=== PATIENT | female | born 1940 | race Caucasian/White ===

== ENCOUNTER 2020-09-02 16:23 | Inpatient (IN) | payer MEDICARE, MEDICAID, SELFPAY ==
[2020-09-02] VITALS (10 sets, daily range): BP systolic 107–129; BP diastolic 49–54; PULSE 70–81; RESP 16–25; TEMP 38–38.4; O2SAT 93–98; BMI 41.1; BMI 39.8
--- NOTE | 2020-09-02 16:28 | EKG12_ITS ---
Test Reason : CONFUSION Blood Pressure : / mmHG Vent. Rate : 082 BPM Atrial Rate : 082 BPM P-R Int : 170 ms QRS Dur : 086 ms QT Int : 362 ms P-R-T Axes : 016 -18 -05 degrees QTc Int : 422 ms Normal sinus rhythm Inferior infarct , age undetermined Abnormal ECG Confirmed by PAULINE DICKINSON, RUBENS ([id number]), editor department TORRIE SEQUEIRA ([id number]) on 09/08/2020 9:23:37 AM Referred By: LINO Confirmed By:MAG CARPENTER MD
--- NOTE | 2020-09-02 16:30 | ED.VIS.GEN ---
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 Context: Sudden Onset Timing: Intermittent Quality: Altered mental status Location: Private residence Current Severity: Moderate Maximum Severity: Moderate Worsened by: Unknown Relieved by: Unknown Associated Symptoms: Unknown Narrative: Patient is an elderly woman who had an altered level of consciousness/awareness this morning. Family called squad because of concern for stroke. Patient had a [place] score of 0 and was not transported. Family called again this afternoon for altered mental status. Patient is not as alert and slow to respond per paramedics. Patient is disoriented. Patient not able to contribute much with regards to her history. She denied headache. She denies change in vision. She denies chest pain. She denies shortness of breath. She denied urinary symptoms. Patient had to be redirected and questions had to be repeated. Prior similar symptoms: Yes - Earlier this morning Recent Illness/Hospitalization: No - Past Medical History (1) Benign essential hypertension Status: Chronic (2) CKD (chronic kidney disease) stage 3, GFR 30-59 ml/min Status: Chronic (3) History of hyperlipidemia Status: Chronic (4) History of rheumatic fever Status: Chronic (5) History of vitamin D deficiency Status: Chronic (6) Morbid obesity with BMI of 40.0-44.9, adult Status: Chronic (7) Status post parathyroidectomy Status: Chronic Past Medical History - Allergies and Home Meds Allergies/Adverse Reactions: Allergies Penicillins Allergy (Verified 09/02/20 16:29) Hives Prior records reviewed: Yes Surgical History: hysterectomy, tonsillectomy, - - parathyroidectomy for hypercalcemia Lives: With Family Smoking Status: Never smoker Alcohol: None Drugs: None - Family History Maternal Family History: Reports: Hypertension Sibling Family History: Reports: Hypertension - no kidney disease Review of Systems ROS: Unable to Obtain Physical Exam Vital Signs/Narrative: Vital Signs Temp Pulse Resp BP Pulse Ox 09/02/20 16:23 100.4 F H 80 18 129/49 H 94 General: Well nourished, Well developed, Obese, No Acute Distress, - - Patient is not alert. She is slow to response. Head: Normocephalic, Atraumatic Eyes: Perrl, EOMI. Negative for: Pale conjunctiva, Scleral icterus ENT: No rhinorrhea, TM's clear Neck: Supple, Nontender, No lymphadenopathy, No JVD Cardiovascular: Regular rate, Regular rhythm, No murmurs, Normal S1, Normal S2 Respiratory: No distress, CTA bilaterally, Chest nontender Abdomen: Soft, Nontender, Nondistended, Normal bowel sounds Rectal: Deferred Back: Nontender, Normal Inspection Extremities: Nontender, Edema Skin: Normal color, No rash, No Trauma. Negative for: Cyanosis, Diaphoresis, Jaundice Neurological: Cranial nerves II-XII grossly intact, Normal DTR - No clonus or Babinski sign. Patient does have stool on her toes.. Negative for: Alert, Oriented x3, Normal Strength - There may be weakness on the left side and specifically left lower extremity., Normal Gait Psychological: - - Flat affect Diagnostic/Tx/Re-eval Impressions Chest X-Ray 09/02/20 16:58 IMPRESSION: Poor inspiration with some bibasilar atelectasis. Electronically Signed: Sean Patel MD at 17:22 EST Tel , Service support , Brain CT 09/02/20 17:08 IMPRESSION: Chronic involutional changes of the brain. Electronically Signed: Sean Patel MD at 17:24 EST Tel , Service support , 09/02/20 16:58 Chest 1 View (Portable) [RAD] Stat 09/02/20 17:08 Brain/Head without Contrast [CT] Stat 09/02/20 16:30 Mucosa - Nose SARS-CoV-2 Antigen (Rapid) - Final SARS-CoV-2 (COVID 19) Laboratory Results 09/02/20 09/02/20 09/02/20 16:59 16:59 16:59 WBC 7.0 RBC 3.95 L Hgb 11.9 L Hct 37.7 MCV 95.4 MCH 30.1 MCHC 31.6 L RDW Std Deviation 48.3 H RDW Coeff of Sara 13.7 Plt Count 193 MPV 10.4 Immature Gran % (Auto) 0.400 Neut % (Auto) 79.5 H Lymph % (Auto) 8.2 L [place] % (Auto) 11.5 H Eos % (Auto) 0.1 Baso % (Auto) 0.3 Absolute Neuts (auto) 5.5 Absolute Lymphs (auto) 0.57 L Nucleated RBC % 0 PT 12.6 INR 1.0 APTT 26.6 Specimen Type Sample Site pH Bicarbonate Actual Total CO2 Base Excess O2 Saturation O2 % ABG pCO2 ABG pO2 Logan Test Sodium 137 Potassium 3.4 L Chloride 102 Carbon Dioxide 27.0 Anion Gap 8 BUN 38 H Creatinine 1.65 H Estim Creat Clear Calc 27.33 Est GFR (MDRD) Af Amer 39 L Est GFR (MDRD) Non-Af 32 L BUN/Creatinine Ratio 23.0 H Glucose 84 Calcium 8.1 L Total Bilirubin 0.50 AST 72 H ALT 40 Alkaline Phosphatase 97 Total Protein 7.5 Albumin 2.9 L Globulin 4.6 H Albumin/Globulin Ratio 0.6 L 09/02/20 17:10 WBC RBC Hgb Hct MCV MCH MCHC RDW Std Deviation RDW Coeff of Sara Plt Count MPV Immature Gran % (Auto) Neut % (Auto) Lymph % (Auto) [place] % (Auto) Eos % (Auto) Baso % (Auto) Absolute Neuts (auto) Absolute Lymphs (auto) Nucleated RBC % PT INR APTT Specimen Type ART Sample Site L Radial pH 7.45 Bicarbonate Actual 23.9 Total CO2 25 Base Excess 0 O2 Saturation 92 L O2 % 21 ABG pCO2 34.2 L ABG pO2 60 L Logan Test Positive Sodium Potassium Chloride Carbon Dioxide Anion Gap BUN Creatinine Estim Creat Clear Calc Est GFR (MDRD) Af Amer Est GFR (MDRD) Non-Af BUN/Creatinine Ratio Glucose Calcium Total Bilirubin AST ALT Alkaline Phosphatase Total Protein Albumin Globulin Albumin/Globulin Ratio Covid test is positive. This is probably the cause of her encephalopathy. Will contact hospitalist for admission. If urine indicates infection will treat with antibiotics. Review of prior records indicate patient has chronic anemia and chronic renal insufficiency. Her creatinine is significantly better than prior results. Radiologist agrees there is no acute findings on CT of the head. - EKG Initial EKG Interpretation: Sinus Rhythm - Normal sinus rhythm with a ventricular rate 82. SC interval 170 ms. QS duration 86 ms. QT duration 362 ms. [place] is normal. There is artifact in lead III which the computer is reading as inferior infarct of undetermined age. - Medical Decision Making With altered mental status and history of fall and assist 3 days ago need to rule out intracranial bleed, stroke, metabolic and infectious causes. Review of vital signs indicate patient is febrile. This may represent Covid, urinary tract infection and pneumonia. Work-up was undertaken. ABG was obtained to rule out acid-base disturbance and more importantly hypercapnia as a cause of her altered mental status. Nurse informed me that she does have a cough. Suspect respiratory etiology for the cause of her altered mental status and fever. Graph patient was seen by the hospitalist Dr. Ana Michaud. Patient now alert oriented. She does not want stay in the hospital. Patient was informed that she has coronavirus. She states she is not sure how she got it since she does not go outside of her house. She then [facility] [place]. Patient is alert she is oriented x3. She does have the capacity to make a poor decision. Patient understands by leaving AGAINST MEDICAL ADVICE this may lead to inability to perform 1 or more activities of daily living, which was explained to her. She was told this may result in fall and injury, which might result injury requiring surgery. She may require more aggressive therapy including invasive and noninvasive ventilation, tracheostomy and feeding tube. This may result in semivegetative vegetative state and or seizure disorder. She was informed that her possible injuries are not limited to what she was told and documented. She was told that this may impair her ability to think and leave her with mental disability, physical disability or cognitive disability. Patient understood. This was explained to her in front of Dr. Ana Michaud. Patient was told that patients with delirium have a 39% mortality if discharged to home and not treated properly. She acknowledged she understood this. ED Disposition - Plan for ED Patient: Disposition: Against Medical Advice Diagnosis: Infectious encephalopathy, COVID-19 virus infection, Anemia, unspecified, Chronic renal insufficiency, stage III (moderate)
--- NOTE | 2020-09-02 16:58 | RAD_ITS ---
STUDY: X-RAY CHEST REASON FOR EXAM: Female, 80 years old. ADVENTITIAL BREATH SOUNDS, LEFT SIDED WEAKNESS, LETHARGIC TECHNIQUE: Single AP portable view of the chest. COMPARISON: 08/30/2014 FINDINGS: Poor inspiration with some bibasilar atelectasis per There is no demonstrated pleural abnormality. Normal size heart. Normal mediastinum and shweta. Normal visualized pulmonary arteries. Normal visualized aortic arch and descending thoracic aorta. Normal visualized thoracic spine. Normal visualized ribs, clavicles, and shoulders. There is no demonstrated abnormality of the visualized soft tissue structures of the upper abdomen. RAD/Chest 1 View (Portable) IMPRESSION: Poor inspiration with some bibasilar atelectasis. Electronically Signed: Sean Patel MD at 17:22 EST Tel , Service support ,
--- NOTE | 2020-09-02 17:08 | CT_ITS ---
STUDY: CT BRAIN WITHOUT CONTRAST REASON FOR EXAM: Female, 80 years old. LEFT SIDED WEAKNESS AND LETHARGIC. HX OF HTN RADIATION DOSAGE (If Supplied By Facility): CTDIvol = ( 60.81 ) mGy, DLP = ( 998.67 ) mGycm TECHNIQUE: Transaxial CT imaging of the brain was performed without administration of intravenous contrast material. Individualized dose optimization techniques were used for this CT. COMPARISON: 01/04/2013 FINDINGS: Normal soft tissue structures. Normal calvarium. There is mild cerebral atrophy with widening of the extra-axial spaces and ventricular dilatation. There are areas of decreased attenuation within the white matter tracts of the supratentorial brain, consistent with microvascular disease changes. 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 Normal brainstem. Normal cerebellum. There is no intracranial hemorrhage. There are no findings of an acute ischemic infarction. Normal visualized paranasal sinuses. CT/Brain/Head without Contrast IMPRESSION: Chronic involutional changes of the brain. Electronically Signed: Sean Patel MD at 17:24 EST Tel , Service support ,
[2020-09-02 17:13] LABS: Absolute Lymphocyte Count 0.57 X10^3/uL (0.83-4.51); Absolute Neutrophil Count 5.5 X10^3/uL (2.0-7.7); Basophil# 0.02 X10^3/uL; Basophil% 0.3 % (0-1); Eosinophil# 0.01 X10^3/uL; Eosinophils% 0.1 % (0-5); Hematocrit 37.7 % (37-47); Hemoglobin 11.9 g/dL (12.0-15.0); Lymphocyte # 0.57 X10^3/ul (4.0); Lymphocyte % 8.2 % (19-41); Mean Corp Hgb Conc 31.6 g/dL (32-36); Mean Corpuscular Hgb 30.1 pg (27.0-32.0); Mean Corpuscular Volume 95.4 fL (81-99); Mean Platelet Vol. 10.4 fl (6.2-12.0); Monocyte% 11.5 % (0-10); NRBC Flagged by Analyzer 0 % (0-5); Neutrophil # 5.54 X10^3/uL (2.7-7.7); Neutrophil % 79.5 % (47-70); POSITIVE DIFFERENTIAL YES; Platelet Count 193 K/mm3 (150-450); RBC Distribution Width CV 13.7 % (11.6-14.6); RBC Distribution Width SD 48.3 fl (35.1-43.9); Red Blood Count 3.95 M/mm3 (4.2-5.4)
[2020-09-02 17:15] LABS: Differential Indicated SCAN CRITERIA MET
[2020-09-02 17:15] LABS: Allen Test Positive; Base Excess 0 mmol/L (-2 to +2); Bicarbonate 23.9 mmol/L (22-26); Blood Gas Specimen Type ART; FI02 21; PO2 60 mmHG (75-100); SITE L Radial; SO2 92 % (95-99); Total Carbon Dioxide 25 mmol/L; pCO2 34.2 mmHg (35-45); pH 7.45 (7.35-7.45)
[2020-09-02 17:22] LABS: Prothrombin Time (Protime)PT. 12.6 SECONDS (11.7-14.9)
[2020-09-02 17:23] LABS: Partial Thromboplast Time 26.6 Seconds (24.1-36.2)
[2020-09-02 17:33] LABS: ALB/GLOB Ratio 0.6 RATIO (0.9-2.4); AST(SGOT) 72 U/L (15-37); Alanine Aminotransfer ALT/SGPT 40 U/L (13-56); Albumin, Serum 2.9 g/dL (3.2-5.0); Alkaline Phosphatase 97 U/L (45-117); Anion Gap 8 (5-15); BUN 38 mg/dL (7-18); Calcium,Total 8.1 mg/dL (8.5-10.1); Chloride 102 mmol/L (98-107); Creatinine, Serum 1.65 mg/dL (0.55-1.02); EST Glomerular Filtration Rate 32 mL/min (>60); Est Glom Filt Rate - Afr Amer 39 mL/min (>60); Estimated Creatinine Clearance 27.33 ml/min; Globulin 4.6 g/dL (2.2-4.2); Glucose 84 mg/dL (74-106); Potassium 3.4 mmol/L (3.5-5.1); Protein, Total 7.5 g/dL (6.4-8.2); Sodium Level 137 mmol/L (136-145)
[2020-09-02 17:38] LABS: Mucous, Urine 0 SEEN /hpf (<or=2+); Squamous Epithelial Cells - UA 0 SEEN /hpf (5-10)
[2020-09-02 17:46] LABS: Color, Urine Yellow (Yellow); Glucose, Dipstick Normal (Normal); Ketone-Dipstick 5 mg/dl (Negative); Leukocyte Esterase-Dipstick 25 /ul (Negative); Nitrite-Dipstick Negative (Negative); Occult Blood-Urine 150 /ul (Negative); Protein-Dipstick 100 mg/dl (Negative); Urine Bilirubin Dipstick Negative (Negative); Urine Clarity Sl. Cloudy (Clear); Urine Urobilinogen 1 mg/dl (Normal)
[2020-09-02 17:55] LABS: Lactic Acid 1.3 mmol/L (0.4-1.9)
--- NOTE | 2020-09-02 17:59 | NURSING ---
MS2 DR FERRO
[2020-09-02 18:01] LABS: Bacteria RARE /hpf (None Seen)
[2020-09-02 18:02] LABS: Red Blood Cells-Urine 0-5 SEEN /hpf (0-5); White Blood Cells 0-5 SEEN /hpf (0-5)
[2020-09-02 18:10] LABS: Differential Comment SCANNED
[2020-09-02 18:11] LABS: Platelet Estimate ADEQUATE (ADEQ); Red Cell Morphology NORM C+C NORMAL (NORM C&C)
--- NOTE | 2020-09-02 20:05 | PCM.HP.STD ---
Problem List (1) Infectious encephalopathy Status: Acute (2) COVID-19 virus infection Status: Acute (3) Anemia, unspecified Status: Chronic (4) CKD (chronic kidney disease) stage 3, GFR 30-59 ml/min Status: Chronic (5) Status post parathyroidectomy Status: Chronic (6) History of vitamin D deficiency Status: Chronic (7) History of rheumatic fever Status: Chronic (8) History of hyperlipidemia Status: Chronic (9) Morbid obesity with BMI of 40.0-44.9, adult Status: Chronic (10) Benign essential hypertension Status: Chronic (11) Hypokalemia Status: Acute History of Present Illness Date of Admission: 09/02/20 Ms Cunningham is a 80 year old F with a PMH of HTN, HPL, MO, and neuropathy who presented to the ED for altered LOC. This am was the first that they noticed this and the squad was called 2/2 concern for stroke but she was not transported as her [place] score was 0. The family called again this afternoon for the same concerns and per the squad she was not as alert and slower to respond so they brought her in to the ED. She was found to be febrile and she had a + COVID-19 test. She has no complaints and upon my evaluation she wanted to s/o AMA. She was A&O x4 at that time and she signed the paperwork but her niece, when she came to pick her up, read that AMA form and talked her into staying. She was stable on RA with a SpO2 of 96%. Her labs show mild anemia which appears to be chronic and ? NICOLE on CKD stage 3 but her baseline sCr is unknown. She was started on Decadron and Remdesivir and admitted to the COVID unit. Past Medical History Past Medical History (Chronic Problems): Chronic Problems Anemia, unspecified (Chronic) CKD (chronic kidney disease) stage 3, GFR 30-59 ml/min (Chronic) Status post parathyroidectomy (Chronic) History of vitamin D deficiency (Chronic) History of rheumatic fever (Chronic) History of hyperlipidemia (Chronic) Morbid obesity with BMI of 40.0-44.9, adult (Chronic) Benign essential hypertension (Chronic) Allergies Penicillins Allergy (Verified 09/02/20 16:29) Hives Home Medications: Ambulatory Orders Medication Instructions Recorded Amlodipine [Norvasc] 5 mg PO BID 08/30/14 Lisinopril [Zestril] 40 mg PO DAILY 08/30/14 Atenolol 100 mg PO DAILY 09/02/20 Cholecalciferol (Vitamin D3) 5,000 unit PO [id number] 09/02/20 [Vitamin D3] Furosemide [Lasix] 20 mg PO DAILY PRN PRN 09/02/20 Gabapentin [Neurontin] 600 mg PO BID 09/02/20 Vitamin B Complex 1 ea PO DAILY 09/02/20 Surgical History: hysterectomy, tonsillectomy, - - parathyroidectomy for hypercalcemia Lives: With Family Smoking Status: Never smoker Alcohol: None Drugs: None - *Family History Maternal History Items: Hypertension Sibling History Items: Hypertension - no kidney disease Review of Systems Constitutional: Denies: Anorexia, Chills, Fever, Night Sweats, Malaise, Weakness, Weight Change, Fatigue Eyes: Denies: Blurred vision, Drainage, Eyelid Inflammation, Pain, Redness, Vision Change HEENT: Denies: Difficulty Hearing, Ear Pain, Eye Pain, Head Aches, Nasal bleeding, Nasal Congestion, Sinus Drainage, Sore Throat, Visual Changes Cardiovascular: Denies: Chest Pain, Claudication, Chest Pressure, Chest Tightness, Edema, Heaviness, Orthopnea, Palpitations, Paroxysmal Noc. Dyspnea, Syncope Respiratory: Denies: Cough, Hemoptysis, Pleuritic Pain, Shortness of Breath, Shortness of breath at rest, Shortness of breath upon exertion, Sputum production, Wheezing Gastrointestinal: Denies: Abdominal Pain, Constipation, Diarrhea, Dyspepsia, Hematemesis, Hematochezia, Nausea, Melena, Vomiting Genitourinary: Denies: Dysuria, Frequency, Hematuria, Hesitancy, Incontinence, Nocturia, Retention, Urgency Musculoskeletal: Reports: Arm Pain. Denies: Back Pain, Joint Pain, Joint stiffness, Joint swelling, Joint Tenderness, Muscle pain, Neck Pain Skin: Denies: Dryness, Jaundice, Lesions, Pruritis, Rash, Wounds Neurological: Denies: Balance problems, Blurred vision, Double vision, Change in Speech, Confusion, Difficulty swallowing, Focal weakness, Headaches, Incoordination, Numbness, Tingling, Tremor, Seizures Psychiatric: Denies: Anxiety, Depression Endocrine: Denies: Change in Body Habitus, Heat/ Cold Intolerance, Polydipsia, Polyuria Hematologic/ Lymphatic: Denies: Adenopathy, Anemia, Petechiae, Purpura VTE Information - Inpt Only VTE Present on Admission: No VTE Mechan Device Prophylaxis: None VTE Pharm Prophylaxis ordered?: Yes Patient Problems: Active and Suspected Problems Infectious encephalopathy (Acute) COVID-19 virus infection (Acute) - Physical Exam Vitals/I&O's: Vital Signs Temp Pulse Resp BP Pulse Ox 101.1 F H 79 25 H 113/54 L 96 09/02/20 18:00 09/02/20 18:00 09/02/20 18:00 09/02/20 18:00 09/02/20 18:00 Oxygen Delivery Method Room Air Weight: 119 kg Body Mass Index (BMI) 41.1 Finger Stick Blood Glucose 111 General: Alert, Oriented x3, Cooperative, No apparent distress, Well developed, Well nourished, - - MO older WF lying in bed appears comfortable, non-toxic HEENT: Atraumatic, PERRLA, EOMI, Normocephalic, EAC Clear Oral: Moist Mucosa, No Gingival or Mucosal Lesions/ Ulcerations Neck: Supple, No JVD, Negative Carotid Bruits, Negative Hepatojugular Reflux, No Nodes, No Nuchal Rigidity, Trachea Midline, Thyroid Normal Size and Texture, - - short thick neck Lungs: Clear to auscultation, Normal air movement, No rhonchi, No wheeze, No rales Cardiovascular: Regular rate, Regular Rhythm, Normal S1, Normal S2, No murmurs, No Ectopic Activity, No rub noted, No Gallop Abdomen: Bowel Sounds Present, Soft, Non Tender, Non-Distended, No Hepato-splenomegaly, Obese Extremities: No clubbing, No cyanosis, No edema, Capillary Refill Less than 3 Seconds, Peripheral Pulses Normal Skin: No rashes, No breakdown Musculoskeletal: No Tenderness to Palpation of Joints or Extremities, No Muscle Wasting, Arthritic Changes Lymphatic: No Cervical, Supraclavicular, or Inguinal Adenopathy Neurological: Cranial nerves II-XII grossly intact, Neuro grossly intact, Muscle tone normal, Coordination normal Psych/Mental Status: Normal Affect, Appropriate Microbiology Past 72 Hours 09/02/20 16:30 Mucosa - Nose SARS-CoV-2 Antigen (Rapid) - Final SARS-CoV-2 (COVID 19) Laboratory Results 09/02/20 16:59: WBC 7.0, RBC 3.95 L, Hgb 11.9 L, Hct 37.7, MCV 95.4, MCH 30.1, MCHC 31.6 L, RDW Std Deviation 48.3 H, RDW Coeff of Sara 13.7, Plt Count 193, MPV 10.4, Immature Gran % (Auto) 0.400, Neut % (Auto) 79.5 H, Lymph % (Auto) 8.2 L, [place] % (Auto) 11.5 H, Eos % (Auto) 0.1, Baso % (Auto) 0.3, Absolute Neuts (auto) 5.5, Absolute Lymphs (auto) 0.57 L, Nucleated RBC % 0, Differential Comment SCANNED, Platelet Estimate ADEQUATE, RBC Morphology NORM C+C 09/02/20 16:59: PT 12.6, INR 1.0, APTT 26.6 09/02/20 16:59: Sodium 137, Potassium 3.4 L, Chloride 102, Carbon Dioxide 27.0, Anion Gap 8, BUN 38 H, Creatinine 1.65 H, Estim Creat Clear Calc 27.33, Est GFR (MDRD) Af Amer 39 L, Est GFR (MDRD) Non-Af 32 L, BUN/Creatinine Ratio 23.0 H, Glucose 84, Calcium 8.1 L, Total Bilirubin 0.50, AST 72 H, ALT 40, Alkaline Phosphatase 97, Total Protein 7.5, Albumin 2.9 L, Globulin 4.6 H, Albumin/Globulin Ratio 0.6 L 09/02/20 16:59: Lactic Acid 1.3 09/02/20 17:10: Specimen Type ART, Sample Site L Radial, pH 7.45, Bicarbonate Actual 23.9, Total CO2 25, Base Excess 0, O2 Saturation 92 L, O2 % 21, ABG pCO2 34.2 L, ABG pO2 60 L, Logan Test Positive 09/02/20 17:30: Urine Color Yellow, Urine Clarity Sl. Cloudy, Urine pH 5.0, Ur Specific [place] 1.020, Urine Protein 100 H, Urine Glucose (UA) Normal, Urine Ketones 5 H, Urine Occult Blood 150 H, Urine Nitrite Negative, Urine Bilirubin Negative, Urine Urobilinogen 1 H, Ur Leukocyte Esterase 25 H, Urine RBC 0-5 SEEN, Urine WBC 0-5 SEEN, Ur Squamous Epith Cells 0 SEEN, Urine Bacteria RARE, Urine Mucus 0 SEEN Current Medications Acetaminophen (Acetaminophen 325 Mg Tablet) 650 mg PO Q6H PRN PRN PRN Reason: Pain Score 1-10/Temp > 100.7 F Albuterol Sulfate (Albuterol 2.5 Mg/3 Ml Vial.Neb.) 2.5 mg INHALATION Q2H PRN PRN PRN Reason: Shortness of Breath/Wheezing Amlodipine Besylate (Amlodipine 5 Mg Tablet) 5 mg PO BID [facility] Dexamethasone (Dexamethasone 4 Mg Tablet) 6 mg PO DAILY [facility] Docusate Sodium (Docusate Sodium 100 Mg Capsule) 100 mg PO BID PRN PRN PRN Reason: Constipation Enoxaparin Sodium (Enoxaparin 40 Mg/0.4 Ml Syringe) 40 mg SC BID [facility] Gabapentin (Gabapentin 100 Mg Capsule) 100 mg PO TIDCM [facility] Hydralazine HCl (Hydralazine 20 Mg/Ml Vial) 10 mg IV Q6H PRN PRN PRN Reason: sbp> 160 Lactated Ringer's () 1,000 mls @ 100 mls/hr IV .Q10H [facility] Remdesivir 100 mg/ Sodium (Chloride) 250 mls @ 125 mls/hr IV DAILY [facility] Stop: 09/06/20 11:59 Metoprolol Succinate (Metoprolol(Xl)Succ 100 Mg Tablet) 100 mg PO DAILY [facility] Ondansetron HCl (Ondansetron 4 Mg/2 Ml Vial) 4 mg IV Q8H PRN PRN PRN Reason: NAUSEA/VOMITING Potassium Chloride (Potassium Chloride 20 Meq Tablet) 40 meq PO X1 ONE Stop: 09/02/20 19:58 Assessment/Plan All Active Problems Infectious encephalopathy (Acute) COVID-19 virus infection (Acute) Hypokalemia (Acute) Acute COVID 19 Infection -apap for fever -remdesivir and decadron -if respiratory status remains stable could consider d/c remdesivir -supplemental O2 as needed -ABG showed PO2 of 60--> monitor for O2 needs, no CO2 retention -pt is high risk for decompensation -fibrinogen and D-dimer pending Acute Metabolic Encephalopathy 2/2 above/Fever -waxes and wanes with fevers -monitor Hypokalemia -replace and recheck -get am mag Mild Transaminitis -trend with CMP -suspect related to COVID ? NICOLE on CKD Stage 3 -baseline unclear but 2013 sCr is about the same -monitor -no Remdesivir dose adjustment needed with current CrCl but if worsens may need adjusted -hold ACEI for now -will give IVF for now and paz in m Mild Chronic Anemia -etiology uncertain -counts stable -consider further w/u as outpt HTN Continue Atenolol, Amlodipine -hold lisinopril -prn hydalizine -hold lasix for now Neuropathy -continue gabapentin MO -complicates COVID -recommend wgt loss DVT Prophylaxis -40 mg BID Lovenox -if sCr worsens would switch to heparin Code Status Full Inpatient E&M: 84932 Init Hosp L3
[2020-09-02] MEDS: Lactated Ringers 1,000 ML 100 ML IV (21:01)
[2020-09-02] MEDS: Acetaminophen 325 MG Tablet 650 MG PO (21:01)
[2020-09-02] MEDS: Remdesivir 200 MG IV x1 (Inital Dose)-All Patients 125 MG IV (21:01)
[2020-09-02] MEDS: Enoxaparin 40 MG/0.4 ML Syringe SC (21:04)
[2020-09-02] MEDS: amLODIPine 5 MG Tablet PO (21:05)
[2020-09-02 21:23] LABS: Fibrinogen 626 mg/dl (203-444)
[2020-09-02 21:30] LABS: D-Dimer Quantitative (DVT/PE) 3.07 FEU/ug/m (0.27-0.49)
--- NOTE | 2020-09-02 21:37 | VDLE_ITS ---
Reason For Study: Elevated D-dimer RIGHT LEFT GSV is normal. GSV is normal. CFV, FV and PopV are compressible. CFV, FV and PopV are compressible. Large nonvascularized strucutre noted in the Acute deep vein thrombosis is noted in the popliteal fossa measuring approximently 1.2 x left gastroc vein. 2.6 cm. Large nonvascularized strucutre noted in the T/P Trunk is compressible. popliteal fossa measuring approximently 1.2 x PTV is compressible. 4.3 cm. RT PerV is compressible. T/P Trunk is compressible. Procedure PTV is compressible. This is a venous duplex using B-mode, color LT PerV is compressible. flow and spectral Doppler. Exam performed portable in patient room. The exam was abbreviated due to the COVID 19 protocol. A preliminary report was called and/or faxed to [facility] trainer. Interpretation Summary No evidence for acute deep venous thrombosis right lower extremity Heterologous nonvascularized right popliteal fossa structure measuring 1.2 x 2.6 cm. Possible complex cyst Acute deep venous thrombosis left gastrocnemius vein Heterogenous nonvascularized left popliteal fossa structure measuring 1.2 x 4.3 cm. Possible complex cysts. Patent and compressible bilateral great saphenous veins COVID-19 protocol utilized Ordering Physician: Martha Kemp Referring Physician: Thuy Campbell M.D. Performed By: Елена Salguero RVT
--- NOTE | 2020-09-02 21:40 | PCM.HOSP.N ---
Hospitalist Note Elevated d-dimer, given renal function and baseline renal disease will request BL LE duplex US and transition to renally dosed therapeutic lovenox regimen.
[2020-09-02] MEDS: Enoxaparin 80 MG/0.8 ML Syringe SC (22:16)
[2020-09-03] VITALS (14 sets, daily range): BP systolic 108–144; BP diastolic 50–69; PULSE 59–74; RESP 16–18; TEMP 36.5–37.4; O2SAT 90–98
[2020-09-03 05:21] LABS: Absolute Neutrophil Count 2.4 X10^3/uL (2.0-7.7); Basophil# 0.02 X10^3/uL; Basophil% 0.5 % (0-1); Hematocrit 35.9 % (37-47); Hemoglobin 11.4 g/dL (12.0-15.0); Lymphocyte % 24.6 % (19-41); Mean Corp Hgb Conc 31.8 g/dL (32-36); Mean Corpuscular Hgb 30.1 pg (27.0-32.0); Mean Corpuscular Volume 94.7 fL (81-99); Mean Platelet Vol. 10.4 fl (6.2-12.0); Monocyte% 14.7 % (0-10); NRBC Flagged by Analyzer 0 % (0-5); Neutrophil # 2.44 X10^3/uL (2.7-7.7); Platelet Count 165 K/mm3 (150-450); RBC Distribution Width CV 13.8 % (11.6-14.6); RBC Distribution Width SD 48.7 fl (35.1-43.9); Red Blood Count 3.79 M/mm3 (4.2-5.4); White Blood Count 4.1 K/mm3 (4.4-11.0)
[2020-09-03 05:34] LABS: D-Dimer Quantitative (DVT/PE) 2.98 FEU/ug/m (0.27-0.49)
[2020-09-03 05:38] LABS: ALB/GLOB Ratio 0.7 RATIO (0.9-2.4); AST(SGOT) 71 U/L (15-37); Alanine Aminotransfer ALT/SGPT 37 U/L (13-56); Albumin, Serum 2.6 g/dL (3.2-5.0); Alkaline Phosphatase 83 U/L (45-117); Anion Gap 7 (5-15); BUN 37 mg/dL (7-18); BUN/Creat Ratio 25.2 RATIO (10-20); Calcium,Total 7.5 mg/dL (8.5-10.1); Chloride 104 mmol/L (98-107); Creatinine, Serum 1.47 mg/dL (0.55-1.02); EST Glomerular Filtration Rate 37 mL/min (>60); Est Glom Filt Rate - Afr Amer 44 mL/min (>60); Estimated Creatinine Clearance 30.67 ml/min; Globulin 3.6 g/dL (2.2-4.2); Glucose 85 mg/dL (74-106); Magnesium 1.5 mg/dL (1.6-2.6); Phosphorus 2.9 mg/dL (2.5-4.9); Potassium 3.6 mmol/L (3.5-5.1); Protein, Total 6.2 g/dL (6.4-8.2); Sodium Level 138 mmol/L (136-145)
[2020-09-03] MEDS: Gabapentin 100 MG Capsule PO ×3 (08:17→16:23)
[2020-09-03] MEDS: Menthol/Lanolin/Calamine/Znox 113 GM Tube 1 APPLIC TOPICAL ×2 (08:18→21:09)
[2020-09-03] MEDS: dexAMETHasone 4 MG Tablet 6 MG PO (08:46)
[2020-09-03] MEDS: amLODIPine 5 MG Tablet PO ×2 (08:51→21:10)
[2020-09-03] MEDS: Metoprolol(XL)Succ 100 MG Tablet PO (08:51)
[2020-09-03] MEDS: Enoxaparin 120 MG/0.8 ML Syringe SC (08:52)
--- NOTE | 2020-09-03 09:25 | CASEMGMT ---
RN CM Assessment Note Introduced role of CM to patient via phone to room. Demographics, PCP verified. patient states she is living alone and independently in a mobile home with ramp to entry way. She states she uses a walker for ambulation. Pt states no current assistance at home was needed. Diagnosis: COVID 19 PCP: Dr. Campbell Insurance: [facility] PPO Preferred Pharmacy: [facility] Retail Prescription Benefit: yes LNOK: Friend Living Arrangements: Lives in mobile home with ramp. States she is independent with care prior to admission. She has a shower transfer bench and is able to complete own ADL's. Tranportation: drives DME: walker, tub transfer bench HHC: none SNF: none Patient DC Goals: Home on discharge DC Plan: anticipate home on discharge. Currently on 2L [place]. May need oxygen testing prior to dc. PT/OT evaluations pending. CM available for discharge planning coordination. Contact CM for any concerns/needs that may arise. Otf COMER RN ACM
[2020-09-03] MEDS: Lactated Ringers 1,000 ML 100 ML IV (11:04)
--- NOTE | 2020-09-03 11:50 | PN_ITS ---
Patient Problems: Active and Suspected Problems Infectious encephalopathy (Acute) COVID-19 virus infection (Acute) Hypokalemia (Acute) Reason for Visit: Follow-up for COVID-19 infection with diarrhea Objective: Seen and examined. Currently patient denies any shortness of breath, cough. Patient was brought to ER for altered mental status, decreased responsiveness/slow to respond per family. Currently on 2 L of oxygen. Temperature T-max 101.1 Fahrenheit. Physical exam General: Alert, Oriented x3, Cooperative, morbid obesity BMI 39.8 kg/m?. HEENT: Atraumatic, PERRLA, EOMI, Normocephalic Oral: No Gingival or Mucosal Lesions/ Ulcerations Neck: Supple, No JVD, Negative Carotid Bruits Lungs: Air entry diminished in bilateral lung bases. No crepitation/rhonchi Cardiovascular: Regular rate, Regular Rhythm, Normal S1, Normal S2, No murmurs Abdomen: Bowel Sounds Present, Soft, Non Tender, Non-Distended : No renal angle tenderness. No suprapubic tenderness. Extremities: No edema, Capillary Refill Less than 3 Seconds Skin: Intertrigo in bilateral groin and abdominal fold of his skin. No obvious ulcer. Musculoskeletal: No Tenderness to Palpation of Joints or Extremities Neurological: Cranial nerves II-XII grossly intact, Deep Tendon Reflexes 2+/4 and Symmetrical, Neuro grossly intact Psych/Mental Status: Normal Affect, Appropriate. Vitals/I&O's: Vital Signs Temp Pulse Resp BP Pulse Ox 99.3 F H 69 18 144/59 H 95 09/03/20 08:45 09/03/20 08:51 09/03/20 08:45 09/03/20 08:45 09/03/20 08:45 Oxygen Flow Rate (L/min) 2 Oxygen Delivery Method Nasal Cannula Weight: 254 lb 1.606 oz Body Mass Index (BMI) 39.8 Finger Stick Blood Glucose 111 Intake and Output for Last 24 Hours 09/01/20 09/02/20 09/03/20 23:59 23:59 23:59 Intake Total 250 / 450 1400 / 1400 Balance 250 / 450 1400 / 1400 Microbiology Past 72 Hours 09/02/20 16:30 Mucosa - Nose SARS-CoV-2 Antigen (Rapid) - Final SARS-CoV-2 (COVID 19) Laboratory Results 09/02/20 16:59: WBC 7.0, RBC 3.95 L, Hgb 11.9 L, Hct 37.7, MCV 95.4, MCH 30.1, MCHC 31.6 L, RDW Std Deviation 48.3 H, RDW Coeff of Sara 13.7, Plt Count 193, MPV 10.4, Immature Gran % (Auto) 0.400, Neut % (Auto) 79.5 H, Lymph % (Auto) 8.2 L, [place] % (Auto) 11.5 H, Eos % (Auto) 0.1, Baso % (Auto) 0.3, Absolute Neuts (auto) 5.5, Absolute Lymphs (auto) 0.57 L, Nucleated RBC % 0, Differential Comment SCANNED, Platelet Estimate ADEQUATE, RBC Morphology NORM C+C 09/02/20 16:59: PT 12.6, INR 1.0, APTT 26.6 09/02/20 16:59: Sodium 137, Potassium 3.4 L, Chloride 102, Carbon Dioxide 27.0, Anion Gap 8, BUN 38 H, Creatinine 1.65 H, Estim Creat Clear Calc 27.33, Est GFR (MDRD) Af Amer 39 L, Est GFR (MDRD) Non-Af 32 L, BUN/Creatinine Ratio 23.0 H, Glucose 84, Calcium 8.1 L, Total Bilirubin 0.50, AST 72 H, ALT 40, Alkaline Phosphatase 97, Total Protein 7.5, Albumin 2.9 L, Globulin 4.6 H, Albumin/Globulin Ratio 0.6 L 09/02/20 16:59: Lactic Acid 1.3 09/02/20 16:59: Fibrinogen 626 H, D-Dimer Quant (PE/DVT) 3.07 H* 09/02/20 17:10: Specimen Type ART, Sample Site L Radial, pH 7.45, Bicarbonate Actual 23.9, Total CO2 25, Base Excess 0, O2 Saturation 92 L, O2 % 21, ABG pCO2 34.2 L, ABG pO2 60 L, Logan Test Positive 09/02/20 17:30: Urine Color Yellow, Urine Clarity Sl. Cloudy, Urine pH 5.0, Ur Specific [place] 1.020, Urine Protein 100 H, Urine Glucose (UA) Normal, Urine Ketones 5 H, Urine Occult Blood 150 H, Urine Nitrite Negative, Urine Bilirubin Negative, Urine Urobilinogen 1 H, Ur Leukocyte Esterase 25 H, Urine RBC 0-5 SEEN, Urine WBC 0-5 SEEN, Ur Squamous Epith Cells 0 SEEN, Urine Bacteria RARE, Urine Mucus 0 SEEN 09/03/20 04:54: WBC 4.1 L, RBC 3.79 L, Hgb 11.4 L, Hct 35.9 L, MCV 94.7, MCH 30.1, MCHC 31.8 L, RDW Std Deviation 48.7 H, RDW Coeff of Sara 13.8, Plt Count 165, MPV 10.4, Immature Gran % (Auto) 0.200, Neut % (Auto) 60.0, Lymph % (Auto) 24.6, [place] % (Auto) 14.7 H, Eos % (Auto) 0.0, Baso % (Auto) 0.5, Absolute Neuts (auto) 2.4, Absolute Lymphs (auto) 1.00, Nucleated RBC % 0 09/03/20 04:54: Sodium 138, Potassium 3.6, Chloride 104, Carbon Dioxide 27.0, Anion Gap 7, BUN 37 H, Creatinine 1.47 H, Estim Creat Clear Calc 30.67, Est GFR (MDRD) Af Amer 44 L, Est GFR (MDRD) Non-Af 37 L, BUN/Creatinine Ratio 25.2 H, Glucose 85, Calcium 7.5 L, Phosphorus 2.9, Magnesium 1.5 L, Total Bilirubin 0.60, AST 71 H, ALT 37, Alkaline Phosphatase 83, Total Protein 6.2 L, Albumin 2.6 L, Globulin 3.6, Albumin/Globulin Ratio 0.7 L 09/03/20 04:54: D-Dimer Quant (PE/DVT) 2.98 H* Current Medications Acetaminophen (Acetaminophen 325 Mg Tablet) 650 mg PO Q6H PRN PRN PRN Reason: Pain Score 1-10/Temp > 100.7 F Last Admin: 09/02/20 21:01 Dose: 650 mg Documented by: Albuterol Sulfate (Albuterol Sulfate 18 Gm Inhaler (200 Puffs)) 2 puff IH Q2H PRN PRN PRN Reason: Shortness of Breath/Wheezing Amlodipine Besylate (Amlodipine 5 Mg Tablet) 5 mg PO BID PRACHI Last Admin: 09/03/20 08:51 Dose: 5 mg Documented by: Calamine/Phenol (Menthol/Lanolin/Calamine/Znox 113 Gm Tube) 1 applic TOPICAL BID [facility]; Protocol Last Admin: 09/03/20 08:18 Dose: 1 applic Documented by: Dexamethasone (Dexamethasone 4 Mg Tablet) 6 mg PO DAILY [facility] Last Admin: 09/03/20 08:46 Dose: 6 mg Documented by: Docusate Sodium (Docusate Sodium 100 Mg Capsule) 100 mg PO BID PRN PRN PRN Reason: Constipation Enoxaparin Sodium (Enoxaparin 120 Mg/0.8 Ml Syringe) 120 mg SC DAILY [facility] Last Admin: 09/03/20 08:52 Dose: 120 mg Documented by: Gabapentin (Gabapentin 100 Mg Capsule) 100 mg PO TIDCM [facility] Last Admin: 09/03/20 08:52 Dose: 100 mg Documented by: Hydralazine HCl (Hydralazine 20 Mg/Ml Vial) 10 mg IV Q6H PRN PRN PRN Reason: sbp> 160 Lactated Ringer's () 1,000 mls @ 100 mls/hr IV .Q10H [facility] Last Admin: 09/03/20 11:04 Dose: 100 mls/hr Documented by: Remdesivir 100 mg/ Sodium (Chloride) 250 mls @ 125 mls/hr IV DAILY@2200 [facility] Stop: 09/06/20 23:59 Metoprolol Succinate (Metoprolol(Xl)Succ 100 Mg Tablet) 100 mg PO DAILY [facility] Last Admin: 09/03/20 08:51 Dose: 100 mg Documented by: Nystatin (Nystatin Powder 15gm Bottle) 1 applic TOPICAL BID [facility]; Protocol Ondansetron HCl (Ondansetron 4 Mg/2 Ml Vial) 4 mg IV Q8H PRN PRN PRN Reason: NAUSEA/VOMITING Sodium Chloride (0.9% Saline Lock 10 Ml Syringe) 10 - 40 ml IV UD PRN PRN Reason: SALINE FLUSH STROKE Vital Signs/Narrative: Vital Signs Temp Pulse Resp BP Pulse Ox 09/03/20 08:51 69 09/03/20 08:45 99.3 F H 69 18 144/59 H 95 09/03/20 08:30 18 90 Medical Necessity - Tobacco Use Smoking Status: Never smoker Tobacco Use: Non-smoker Assessment/Plan All Active Problems Infectious encephalopathy (Acute) COVID-19 virus infection (Acute) Hypokalemia (Acute) This 80-year-old female with multiple comorbidities was brought to ER for decreased responsiveness/altered mental status. COVID-19 was positive. Patient also found to have acute kidney injury on CKD stage III. 1.Acute COVID 19 Infection with acute encephalopathy most probably infectious/metabolic: Patient is being admitted on MedSurg floor. On remdesivir and Decadron. Pulse ox 95% on 2 L of oxygen. ABG 7.4 5/34/60/25 on room air with Aa gradient. Lactic acid normal. Fibrinogen and D-dimer elevated. On Lovenox 120 mg, 1 mg/kg body weight daily adjusted to creatinine clearance. AST mildly elevated at 72, albumin 2.6 otherwise liver chemistry normal. 2. Hypokalemia and hypomagnesemia: Magnesium is 1.5 phosphorus 2.9. Potassium and magnesium replacement. 3. NICOLE on CKD Stage 3: Baseline serum creatinine is unclear. Repeat labs shows improvement in creatinine. Will monitor urine output, electrolytes and kidney function daily. Hold JOAQUIN inhibitor. Mild anemia of chronic disease: Hemoglobin is stable. 11.4/35.9 Hypertension: Continue atenolol and amlodipine. Lisinopril and Lasix on hold secondary to acute kidney injury as mentioned above Peripheral neuropathy: Continue gabapentin DVT prophylaxis: CODE STATUS full: Microbiology Past 72 Hours 09/02/20 16:30 Mucosa - Nose SARS-CoV-2 Antigen (Rapid) - Final SARS-CoV-2 (COVID 19) Laboratory Results 09/02/20 16:59: WBC 7.0, RBC 3.95 L, Hgb 11.9 L, Hct 37.7, MCV 95.4, MCH 30.1, MCHC 31.6 L, RDW Std Deviation 48.3 H, RDW Coeff of Sara 13.7, Plt Count 193, MPV 10.4, Immature Gran % (Auto) 0.400, Neut % (Auto) 79.5 H, Lymph % (Auto) 8.2 L, [place] % (Auto) 11.5 H, Eos % (Auto) 0.1, Baso % (Auto) 0.3, Absolute Neuts (auto) 5.5, Absolute Lymphs (auto) 0.57 L, Nucleated RBC % 0, Differential Comment SCANNED, Platelet Estimate ADEQUATE, RBC Morphology NORM C+C 09/02/20 16:59: PT 12.6, INR 1.0, APTT 26.6 09/02/20 16:59: Sodium 137, Potassium 3.4 L, Chloride 102, Carbon Dioxide 27.0, Anion Gap 8, BUN 38 H, Creatinine 1.65 H, Estim Creat Clear Calc 27.33, Est GFR (MDRD) Af Amer 39 L, Est GFR (MDRD) Non-Af 32 L, BUN/Creatinine Ratio 23.0 H, Glucose 84, Calcium 8.1 L, Total Bilirubin 0.50, AST 72 H, ALT 40, Alkaline Phosphatase 97, Total Protein 7.5, Albumin 2.9 L, Globulin 4.6 H, Albumin/Globulin Ratio 0.6 L 09/02/20 16:59: Lactic Acid 1.3 09/02/20 16:59: Fibrinogen 626 H, D-Dimer Quant (PE/DVT) 3.07 H* 09/02/20 17:10: Specimen Type ART, Sample Site L Radial, pH 7.45, Bicarbonate Actual 23.9, Total CO2 25, Base Excess 0, O2 Saturation 92 L, O2 % 21, ABG pCO2 34.2 L, ABG pO2 60 L, Logan Test Positive 09/02/20 17:30: Urine Color Yellow, Urine Clarity Sl. Cloudy, Urine pH 5.0, Ur Specific [place] 1.020, Urine Protein 100 H, Urine Glucose (UA) Normal, Urine Ketones 5 H, Urine Occult Blood 150 H, Urine Nitrite Negative, Urine Bilirubin Negative, Urine Urobilinogen 1 H, Ur Leukocyte Esterase 25 H, Urine RBC 0-5 SEEN, Urine WBC 0-5 SEEN, Ur Squamous Epith Cells 0 SEEN, Urine Bacteria RARE, Urine Mucus 0 SEEN 09/03/20 04:54: WBC 4.1 L, RBC 3.79 L, Hgb 11.4 L, Hct 35.9 L, MCV 94.7, MCH 30.1, MCHC 31.8 L, RDW Std Deviation 48.7 H, RDW Coeff of Sara 13.8, Plt Count 165, MPV 10.4, Immature Gran % (Auto) 0.200, Neut % (Auto) 60.0, Lymph % (Auto) 24.6, [place] % (Auto) 14.7 H, Eos % (Auto) 0.0, Baso % (Auto) 0.5, Absolute Neuts (auto) 2.4, Absolute Lymphs (auto) 1.00, Nucleated RBC % 0 09/03/20 04:54: Sodium 138, Potassium 3.6, Chloride 104, Carbon Dioxide 27.0, Anion Gap 7, BUN 37 H, Creatinine 1.47 H, Estim Creat Clear Calc 30.67, Est GFR (MDRD) Af Amer 44 L, Est GFR (MDRD) Non-Af 37 L, BUN/Creatinine Ratio 25.2 H, Glucose 85, Calcium 7.5 L, Phosphorus 2.9, Magnesium 1.5 L, Total Bilirubin 0.60, AST 71 H, ALT 37, Alkaline Phosphatase 83, Total Protein 6.2 L, Albumin 2.6 L, Globulin 3.6, Albumin/Globulin Ratio 0.7 L 09/03/20 04:54: D-Dimer Quant (PE/DVT) 2.98 H* Inpatient E&M: 24986 Subs Hosp L2
--- NOTE | 2020-09-03 13:28 | CHAPLAIN ---
Type of Pastoral Visit ___ Initial Visit ___ Follow-up Visit ___ On-call Visit ___ General Patient Visit ___ Spiritual Assessment ___ Family Conference ___ Bereavement ___ Rapid Response ___ Code Blue _x__ Other (describe below) Pastoral Care Referral From ___ Patient ___ Family ___ Nurse ___ Physician ___ Software Sales Consultant ___ Camp Dining Room Attendant _x__ Other (describe below) Sacrament/Intervention _x__ Active listening ___ Anointing ___ Advent ___ Bereavement ___ Communion _x__ Elana exploration ___ ___ Life review _x__ Prayer ___ Reconciliation ___ Sacrament of Sick ___ Supportive presence ___ Wedding ___ Other (describe below) Pastoral Comments phone call into this isolation room for patient; pt answered phone and states she is feeling pretty good now; pt says she is looking forward to going home and seeing her pet; pt is member of [employer]; pt welcomes prayer
--- NOTE | 2020-09-03 15:29 | PCM.HP.ID ---
Problem List (1) COVID-19 virus infection Status: Acute Reason for Consult: covid Consulted by: Dr. Pollock History of Present Illness: The patient is a 80 year old F with CKD, presented with sx starting 08/31 with fatigue, cough, diarrhea. Had driven a friend who had the flu a week prior. No fever, no chest pain, no aches. Came to ED, covid (+), admitted on dex and remdesivir. Feeling ok today. Full ROS performed and neg except as noted above. - Medical History Past Medical History (Chronic Problems): Chronic Problems Anemia, unspecified (Chronic) CKD (chronic kidney disease) stage 3, GFR 30-59 ml/min (Chronic) Status post parathyroidectomy (Chronic) History of vitamin D deficiency (Chronic) History of rheumatic fever (Chronic) History of hyperlipidemia (Chronic) Morbid obesity with BMI of 40.0-44.9, adult (Chronic) Benign essential hypertension (Chronic) Allergies/Adverse Reactions: Allergies Penicillins Allergy (Verified 09/02/20 16:29) Hives Home Medications: Ambulatory Orders Medication Instructions Recorded Amlodipine [Norvasc] 5 mg PO BID 08/30/14 Lisinopril [Zestril] 40 mg PO DAILY 08/30/14 Atenolol 100 mg PO DAILY 09/02/20 Cholecalciferol (Vitamin D3) 5,000 unit PO [id number] 09/02/20 [Vitamin D3] Furosemide [Lasix] 20 mg PO DAILY PRN PRN 09/02/20 Gabapentin [Neurontin] 600 mg PO BID 09/02/20 Vitamin B Complex 1 ea PO DAILY 09/02/20 - Social History Tobacco Use: non-smoker Vital Signs Temp Pulse Resp BP Pulse Ox 99.3 F H 68 18 144/59 H 95 09/03/20 08:45 09/03/20 09:54 09/03/20 08:45 09/03/20 08:45 09/03/20 08:45 Oxygen Flow Rate (L/min) 2 Oxygen Delivery Method Nasal Cannula Weight: 115.258 kg Body Mass Index (BMI) 39.8 Finger Stick Blood Glucose 111 Microbiology Past 72 Hours 09/02/20 17:30 Urine Culture - Preliminary Urine, Catheterized Presumptive E. coli 09/02/20 16:30 SARS-CoV-2 Antigen (Rapid) - Final Mucosa - Nose SARS-CoV-2 (COVID 19) Laboratory Tests Past 24 Hrs 09/02/20 09/02/20 09/02/20 16:59 16:59 16:59 WBC 7.0 RBC 3.95 L Hgb 11.9 L Hct 37.7 MCV 95.4 MCH 30.1 MCHC 31.6 L RDW Std Deviation 48.3 H RDW Coeff of Sara 13.7 Plt Count 193 MPV 10.4 Immature Gran % (Auto) 0.400 Neut % (Auto) 79.5 H Lymph % (Auto) 8.2 L [place] % (Auto) 11.5 H Eos % (Auto) 0.1 Baso % (Auto) 0.3 Absolute Neuts (auto) 5.5 Absolute Lymphs (auto) 0.57 L Nucleated RBC % 0 Differential Comment SCANNED Platelet Estimate ADEQUATE RBC Morphology NORM C+C PT 12.6 INR 1.0 APTT 26.6 Fibrinogen D-Dimer Quant (PE/DVT) Specimen Type Sample Site pH Bicarbonate Actual Total CO2 Base Excess O2 Saturation O2 % ABG pCO2 ABG pO2 Logan Test Sodium 137 Potassium 3.4 L Chloride 102 Carbon Dioxide 27.0 Anion Gap 8 BUN 38 H Creatinine 1.65 H Estim Creat Clear Calc 27.33 Est GFR (MDRD) Af Amer 39 L Est GFR (MDRD) Non-Af 32 L BUN/Creatinine Ratio 23.0 H Glucose 84 Lactic Acid Calcium 8.1 L Phosphorus Magnesium Total Bilirubin 0.50 AST 72 H ALT 40 Alkaline Phosphatase 97 Total Protein 7.5 Albumin 2.9 L Globulin 4.6 H Albumin/Globulin Ratio 0.6 L Urine Color Urine Clarity Urine pH Ur Specific [place] Urine Protein Urine Glucose (UA) Urine Ketones Urine Occult Blood Urine Nitrite Urine Bilirubin Urine Urobilinogen Ur Leukocyte Esterase Urine RBC Urine WBC Ur Squamous Epith Cells Urine Bacteria Urine Mucus 09/02/20 09/02/20 09/02/20 16:59 16:59 17:10 WBC RBC Hgb Hct MCV MCH MCHC RDW Std Deviation RDW Coeff of Sara Plt Count MPV Immature Gran % (Auto) Neut % (Auto) Lymph % (Auto) [place] % (Auto) Eos % (Auto) Baso % (Auto) Absolute Neuts (auto) Absolute Lymphs (auto) Nucleated RBC % Differential Comment Platelet Estimate RBC Morphology PT INR APTT Fibrinogen 626 H D-Dimer Quant (PE/DVT) 3.07 H* Specimen Type ART Sample Site L Radial pH 7.45 Bicarbonate Actual 23.9 Total CO2 25 Base Excess 0 O2 Saturation 92 L O2 % 21 ABG pCO2 34.2 L ABG pO2 60 L Logan Test Positive Sodium Potassium Chloride Carbon Dioxide Anion Gap BUN Creatinine Estim Creat Clear Calc Est GFR (MDRD) Af Amer Est GFR (MDRD) Non-Af BUN/Creatinine Ratio Glucose Lactic Acid 1.3 Calcium Phosphorus Magnesium Total Bilirubin AST ALT Alkaline Phosphatase Total Protein Albumin Globulin Albumin/Globulin Ratio Urine Color Urine Clarity Urine pH Ur Specific [place] Urine Protein Urine Glucose (UA) Urine Ketones Urine Occult Blood Urine Nitrite Urine Bilirubin Urine Urobilinogen Ur Leukocyte Esterase Urine RBC Urine WBC Ur Squamous Epith Cells Urine Bacteria Urine Mucus 09/02/20 09/03/20 09/03/20 17:30 04:54 04:54 WBC 4.1 L RBC 3.79 L Hgb 11.4 L Hct 35.9 L MCV 94.7 MCH 30.1 MCHC 31.8 L RDW Std Deviation 48.7 H RDW Coeff of Sara 13.8 Plt Count 165 MPV 10.4 Immature Gran % (Auto) 0.200 Neut % (Auto) 60.0 Lymph % (Auto) 24.6 [place] % (Auto) 14.7 H Eos % (Auto) 0.0 Baso % (Auto) 0.5 Absolute Neuts (auto) 2.4 Absolute Lymphs (auto) 1.00 Nucleated RBC % 0 Differential Comment Platelet Estimate RBC Morphology PT INR APTT Fibrinogen D-Dimer Quant (PE/DVT) Specimen Type Sample Site pH Bicarbonate Actual Total CO2 Base Excess O2 Saturation O2 % ABG pCO2 ABG pO2 Logan Test Sodium 138 Potassium 3.6 Chloride 104 Carbon Dioxide 27.0 Anion Gap 7 BUN 37 H Creatinine 1.47 H Estim Creat Clear Calc 30.67 Est GFR (MDRD) Af Amer 44 L Est GFR (MDRD) Non-Af 37 L BUN/Creatinine Ratio 25.2 H Glucose 85 Lactic Acid Calcium 7.5 L Phosphorus 2.9 Magnesium 1.5 L Total Bilirubin 0.60 AST 71 H ALT 37 Alkaline Phosphatase 83 Total Protein 6.2 L Albumin 2.6 L Globulin 3.6 Albumin/Globulin Ratio 0.7 L Urine Color Yellow Urine Clarity Sl. Cloudy Urine pH 5.0 Ur Specific [place] 1.020 Urine Protein 100 H Urine Glucose (UA) Normal Urine Ketones 5 H Urine Occult Blood 150 H Urine Nitrite Negative Urine Bilirubin Negative Urine Urobilinogen 1 H Ur Leukocyte Esterase 25 H Urine RBC 0-5 SEEN Urine WBC 0-5 SEEN Ur Squamous Epith Cells 0 SEEN Urine Bacteria RARE Urine Mucus 0 SEEN 09/03/20 04:54 WBC RBC Hgb Hct MCV MCH MCHC RDW Std Deviation RDW Coeff of Sara Plt Count MPV Immature Gran % (Auto) Neut % (Auto) Lymph % (Auto) [place] % (Auto) Eos % (Auto) Baso % (Auto) Absolute Neuts (auto) Absolute Lymphs (auto) Nucleated RBC % Differential Comment Platelet Estimate RBC Morphology PT INR APTT Fibrinogen D-Dimer Quant (PE/DVT) 2.98 H* Specimen Type Sample Site pH Bicarbonate Actual Total CO2 Base Excess O2 Saturation O2 % ABG pCO2 ABG pO2 Logan Test Sodium Potassium Chloride Carbon Dioxide Anion Gap BUN Creatinine Estim Creat Clear Calc Est GFR (MDRD) Af Amer Est GFR (MDRD) Non-Af BUN/Creatinine Ratio Glucose Lactic Acid Calcium Phosphorus Magnesium Total Bilirubin AST ALT Alkaline Phosphatase Total Protein Albumin Globulin Albumin/Globulin Ratio Urine Color Urine Clarity Urine pH Ur Specific [place] Urine Protein Urine Glucose (UA) Urine Ketones Urine Occult Blood Urine Nitrite Urine Bilirubin Urine Urobilinogen Ur Leukocyte Esterase Urine RBC Urine WBC Ur Squamous Epith Cells Urine Bacteria Urine Mucus - Other Studies Radiology: [] reviewed Other Studies: [] Route of nutrition/ use of supplements: [] Nutritional Intake: [] IV Site: [] [place] Catheter: [] - Physical Exam General: Alert, Oriented x3, Cooperative, No apparent distress HEENT: Atraumatic, PERRLA, EOMI Neck: Supple, No Nodes Lungs: Clear to auscultation, Diminished Cardiovascular: Regular rate, Regular Rhythm Abdomen: Soft, Non Tender, Non-Distended Extremities: No edema Skin: No rashes IV Site: Peripheral, without redness Musculoskeletal: No Tenderness to Palpation of Joints or Extremities Neurological: Cranial nerves II-XII grossly intact - Assessment/Plan Antibiotics: [] Assessment/Plan: [] Active and Suspected Problems Infectious encephalopathy (Acute) COVID-19 virus infection (Acute) Hypokalemia (Acute) covid with hypoxia, fever - sx started 08/31. On dex and remdesivir. D-dimer 3, on therapeutic lovenox. Doppler pending. Will order VQ scan; if neg, can decrease lovenox. ucx with small growth of ecoli, agree with not treating with abx. Will follow, thank you
[2020-09-03] MEDS: Nystatin Powder 15gm Bottle 1 APPLIC TOPICAL (21:08)
[2020-09-04] VITALS (7 sets, daily range): BP systolic 125–155; BP diastolic 59–84; PULSE 55–68; RESP 16–18; TEMP 36.6–37; O2SAT 93–96
[2020-09-04] MEDS: Lactated Ringers 1,000 ML 100 ML IV (00:04)
--- NOTE | 2020-09-04 07:01 | PCS.PANDOC ---
PANDEMIC DOCUMENTATION INITIATED: Date: 09/02/20 Time: 1954
--- NOTE | 2020-09-04 07:40 | PN_ITS ---
Patient Problems: Active and Suspected Problems Infectious encephalopathy (Acute) COVID-19 virus infection (Acute) Hypokalemia (Acute) Objective: Heart rate in upper 50s. Blood pressure is in normal range. On 2 L of oxygen. Wound culture shows E. coli 11,000 25,000, not in pathologic range, colonization. Would not treat it. Vitals/I&O's: Vital Signs Temp Pulse Resp BP Pulse Ox 98.6 F 59 L 16 125/59 H 96 09/04/20 03:00 09/04/20 07:09 09/04/20 03:00 09/04/20 03:00 09/04/20 03:00 Oxygen Flow Rate (L/min) 2 Oxygen Delivery Method Nasal Cannula Weight: 254 lb 1.606 oz Body Mass Index (BMI) 39.8 Finger Stick Blood Glucose 111 Intake and Output for Last 24 Hours 09/02/20 09/03/20 09/04/20 23:59 23:59 23:59 Intake Total 250 / 450 2504.00 / 2704.00 750 / 750 Balance 250 / 450 2504.00 / 2704.00 750 / 750 Microbiology Past 72 Hours 09/02/20 17:30 Urine, Catheterized Urine Culture - Preliminary Presumptive E. coli 09/02/20 16:30 Mucosa - Nose SARS-CoV-2 Antigen (Rapid) - Final SARS-CoV-2 (COVID 19) Current Medications Acetaminophen (Acetaminophen 325 Mg Tablet) 650 mg PO Q6H PRN PRN PRN Reason: Pain Score 1-10/Temp > 100.7 F Last Admin: 09/02/20 21:01 Dose: 650 mg Documented by: Albuterol Sulfate (Albuterol Sulfate 18 Gm Inhaler (200 Puffs)) 2 puff IH Q2H PRN PRN PRN Reason: Shortness of Breath/Wheezing Amlodipine Besylate (Amlodipine 5 Mg Tablet) 5 mg PO BID [facility] Last Admin: 09/03/20 21:10 Dose: 5 mg Documented by: Calamine/Phenol (Menthol/Lanolin/Calamine/Znox 113 Gm Tube) 1 applic TOPICAL BID [facility]; Protocol Last Admin: 09/03/20 21:09 Dose: 1 applic Documented by: Dexamethasone (Dexamethasone 4 Mg Tablet) 6 mg PO DAILY [facility] Stop: 09/12/20 10:01 Last Admin: 09/03/20 08:46 Dose: 6 mg Documented by: Docusate Sodium (Docusate Sodium 100 Mg Capsule) 100 mg PO BID PRN PRN PRN Reason: Constipation Enoxaparin Sodium (Enoxaparin 120 Mg/0.8 Ml Syringe) 120 mg SC DAILY [facility] Last Admin: 09/03/20 08:52 Dose: 120 mg Documented by: Gabapentin (Gabapentin 100 Mg Capsule) 100 mg PO TIDCM [facility] Last Admin: 09/03/20 16:23 Dose: 100 mg Documented by: Hydralazine HCl (Hydralazine 20 Mg/Ml Vial) 10 mg IV Q6H PRN PRN PRN Reason: sbp> 160 Lactated Ringer's () 1,000 mls @ 100 mls/hr IV .Q10H [facility] Last Admin: 09/04/20 00:04 Dose: 100 mls/hr Documented by: Remdesivir 100 mg/ Sodium (Chloride) 250 mls @ 125 mls/hr IV DAILY@2200 [facility] Stop: 09/06/20 23:59 Last Infusion: 09/04/20 00:05 Dose: Infused Documented by: Metoprolol Succinate (Metoprolol(Xl)Succ 100 Mg Tablet) 100 mg PO DAILY [facility] Last Admin: 09/03/20 08:51 Dose: 100 mg Documented by: Nystatin (Nystatin Powder 15gm Bottle) 1 applic TOPICAL BID [facility]; Protocol Last Admin: 09/03/20 21:08 Dose: 1 applicatio Documented by: Ondansetron HCl (Ondansetron 4 Mg/2 Ml Vial) 4 mg IV Q8H PRN PRN PRN Reason: NAUSEA/VOMITING Potassium Chloride (Potassium Chloride 20 Meq Tablet) 40 meq PO DAILY [facility] Stop: 09/05/20 11:59 Last Admin: 09/03/20 13:29 Dose: 40 meq Documented by: Sodium Chloride (0.9% Saline Lock 10 Ml Syringe) 10 - 40 ml IV UD PRN PRN Reason: SALINE FLUSH STROKE Vital Signs/Narrative: Vital Signs Pulse 09/04/20 07:09 59 L 09/04/20 04:13 55 L Medical Necessity - Tobacco Use Smoking Status: Never smoker Tobacco Use: Non-smoker Assessment/Plan All Active Problems Infectious encephalopathy (Acute) COVID-19 virus infection (Acute) Hypokalemia (Acute) This 80-year-old female with multiple comorbidities was brought to ER for decreased responsiveness/altered mental status. COVID-19 was positive. Patient also found to have acute kidney injury on CKD stage III. 1.Acute COVID 19 Infection with acute encephalopathy most probably infectious/metabolic: Patient is being admitted on MedSurg floor. On remdesivir and Decadron. Pulse ox 95% on 2 L of oxygen. ABG 7.4 5/34/60/25 on room air with Aa gradient. Lactic acid normal. Fibrinogen and D-dimer elevated. On Lovenox 120 mg, 1 mg/kg body weight daily adjusted to creatinine clearance. AST mildly elevated at 72, albumin 2.6 otherwise liver chemistry normal. 2. Hypokalemia and hypomagnesemia: Magnesium is 1.5 phosphorus 2.9. Potassium and magnesium replacement. 3. NICOLE on CKD Stage 3: Baseline serum creatinine is unclear. Repeat labs shows improvement in creatinine. Will monitor urine output, electrolytes and kidney function daily. Hold JOAQUIN inhibitor. Mild anemia of chronic disease: Hemoglobin is stable. 11.4/35.9 Hypertension: Continue atenolol and amlodipine. Lisinopril and Lasix on hold secondary to acute kidney injury as mentioned above Peripheral neuropathy: Continue gabapentin DVT prophylaxis: CODE STATUS full: Microbiology Past 72 Hours 09/02/20 16:30 Mucosa - Nose SARS-CoV-2 Antigen (Rapid) - Final SARS-CoV-2 (COVID 19) Laboratory Results 09/02/20 16:59: WBC 7.0, RBC 3.95 L, Hgb 11.9 L, Hct 37.7, MCV 95.4, MCH 30.1, MCHC 31.6 L, RDW Std Deviation 48.3 H, RDW Coeff of Sara 13.7, Plt Count 193, MPV 10.4, Immature Gran % (Auto) 0.400, Neut % (Auto) 79.5 H, Lymph % (Auto) 8.2 L, [place] % (Auto) 11.5 H, Eos % (Auto) 0.1, Baso % (Auto) 0.3, Absolute Neuts (auto) 5.5, Absolute Lymphs (auto) 0.57 L, Nucleated RBC % 0, Differential Comment SCANNED, Platelet Estimate ADEQUATE, RBC Morphology NORM C+C 09/02/20 16:59: PT 12.6, INR 1.0, APTT 26.6 09/02/20 16:59: Sodium 137, Potassium 3.4 L, Chloride 102, Carbon Dioxide 27.0, Anion Gap 8, BUN 38 H, Creatinine 1.65 H, Estim Creat Clear Calc 27.33, Est GFR (MDRD) Af Amer 39 L, Est GFR (MDRD) Non-Af 32 L, BUN/Creatinine Ratio 23.0 H, Glucose 84, Calcium 8.1 L, Total Bilirubin 0.50, AST 72 H, ALT 40, Alkaline Phosphatase 97, Total Protein 7.5, Albumin 2.9 L, Globulin 4.6 H, Albumin/Globulin Ratio 0.6 L 09/02/20 16:59: Lactic Acid 1.3 09/02/20 16:59: Fibrinogen 626 H, D-Dimer Quant (PE/DVT) 3.07 H* 09/02/20 17:10: Specimen Type ART, Sample Site L Radial, pH 7.45, Bicarbonate Actual 23.9, Total CO2 25, Base Excess 0, O2 Saturation 92 L, O2 % 21, ABG pCO2 34.2 L, ABG pO2 60 L, Logan Test Positive 09/02/20 17:30: Urine Color Yellow, Urine Clarity Sl. Cloudy, Urine pH 5.0, Ur Specific [place] 1.020, Urine Protein 100 H, Urine Glucose (UA) Normal, Urine Ketones 5 H, Urine Occult Blood 150 H, Urine Nitrite Negative, Urine Bilirubin Negative, Urine Urobilinogen 1 H, Ur Leukocyte Esterase 25 H, Urine RBC 0-5 SEEN, Urine WBC 0-5 SEEN, Ur Squamous Epith Cells 0 SEEN, Urine Bacteria RARE, Urine Mucus 0 SEEN 09/03/20 04:54: WBC 4.1 L, RBC 3.79 L, Hgb 11.4 L, Hct 35.9 L, MCV 94.7, MCH 30.1, MCHC 31.8 L, RDW Std Deviation 48.7 H, RDW Coeff of Sara 13.8, Plt Count 165, MPV 10.4, Immature Gran % (Auto) 0.200, Neut % (Auto) 60.0, Lymph % (Auto) 24.6, [place] % (Auto) 14.7 H, Eos % (Auto) 0.0, Baso % (Auto) 0.5, Absolute Neuts (auto) 2.4, Absolute Lymphs (auto) 1.00, Nucleated RBC % 0 09/03/20 04:54: Sodium 138, Potassium 3.6, Chloride 104, Carbon Dioxide 27.0, Anion Gap 7, BUN 37 H, Creatinine 1.47 H, Estim Creat Clear Calc 30.67, Est GFR (MDRD) Af Amer 44 L, Est GFR (MDRD) Non-Af 37 L, BUN/Creatinine Ratio 25.2 H, Glucose 85, Calcium 7.5 L, Phosphorus 2.9, Magnesium 1.5 L, Total Bilirubin 0.60, AST 71 H, ALT 37, Alkaline Phosphatase 83, Total Protein 6.2 L, Albumin 2.6 L, Globulin 3.6, Albumin/Globulin Ratio 0.7 L 09/03/20 04:54: D-Dimer Quant (PE/DVT) 2.98 H*
[2020-09-04 08:21] LABS: ALB/GLOB Ratio 0.7 RATIO (0.9-2.4); AST(SGOT) 72 U/L (15-37); Alanine Aminotransfer ALT/SGPT 41 U/L (13-56); Albumin, Serum 2.9 g/dL (3.2-5.0); Alkaline Phosphatase 86 U/L (45-117); Anion Gap 11 (5-15); BUN 33 mg/dL (7-18); BUN/Creat Ratio 25.8 RATIO (10-20); Calcium,Total 7.6 mg/dL (8.5-10.1); Chloride 110 mmol/L (98-107); Creatinine, Serum 1.28 mg/dL (0.55-1.02); EST Glomerular Filtration Rate 43 mL/min (>60); Est Glom Filt Rate - Afr Amer 52 mL/min (>60); Estimated Creatinine Clearance 35.22 ml/min; Globulin 4.1 g/dL (2.2-4.2); Glucose 95 mg/dL (74-106); Magnesium 1.9 mg/dL (1.6-2.6); Potassium 4.4 mmol/L (3.5-5.1); Sodium Level 139 mmol/L (136-145)
[2020-09-04] MEDS: Gabapentin 100 MG Capsule PO (08:54)
[2020-09-04] MEDS: Nystatin Powder 15gm Bottle 1 APPLIC TOPICAL (08:54)
[2020-09-04] MEDS: amLODIPine 5 MG Tablet PO (08:55)
[2020-09-04] MEDS: Enoxaparin 120 MG/0.8 ML Syringe SC (08:55)
[2020-09-04] MEDS: Metoprolol(XL)Succ 100 MG Tablet PO (08:55)
[2020-09-04] MEDS: Menthol/Lanolin/Calamine/Znox 113 GM Tube 1 APPLIC TOPICAL (08:56)
[2020-09-04] MEDS: dexAMETHasone 4 MG Tablet 6 MG PO (08:56)
--- NOTE | 2020-09-04 10:23 | PCM.DC ---
- Discharge Diagnoses Current Active Problems: Current Active and Chronic Problems Infectious encephalopathy (Acute) COVID-19 virus infection (Acute) Anemia, unspecified (Chronic) Hypokalemia (Acute) CKD (chronic kidney disease) stage 3, GFR 30-59 ml/min (Chronic) Status post parathyroidectomy (Chronic) History of vitamin D deficiency (Chronic) History of rheumatic fever (Chronic) History of hyperlipidemia (Chronic) Morbid obesity with BMI of 40.0-44.9, adult (Chronic) Benign essential hypertension (Chronic) You will use the following diet at home:: Cardiac Your food should be the consistency of: Regular Your liquids should be the consistency of: Regular/Thin Discharge Activity: May Not Drive Weight Bearing Status: Weight bearing as tolerated Call your doctor if you observe: Fever of 101 or Higher, Numbness or Tingling, Change in Color, Inability to urinate, Inability to have a bowel movement, Using more than one pad per hour, Shortness of breath, Dizziness, Fainting spells, Swelling in the ankles, Chest pain, Prolonged hiccoughing, Increased palpitations (irregular heartbeat), Calf discomfort, Uncontrolled pain Additional Instructions: Advised BMP in 1 week and follow-up with PCP as patient has acute kidney injury on CKD stage III Hold lisinopril and Lasix until kidney function is on baseline, at least 1 week Allergies/Adverse Reactions: Allergies Penicillins Allergy (Verified 09/02/20 16:29) Hives Medications to take at Discharge Amlodipine [Norvasc] 5 mg PO BID 08/30/14 Cholecalciferol (Vitamin D3) [Vitamin D3] 5,000 unit PO MOTUWETHFRSA 09/02/20 Gabapentin [Neurontin] 600 mg PO BID 09/02/20 Vitamin B Complex 1 ea PO DAILY 09/02/20 Apixaban [Eliquis] 5 mg PO BID #60 tab.ds.pk 09/04/20 Atenolol 100 mg PO DAILY #0 09/04/20 Dexamethasone [Decadron] 6 mg PO DAILY #8 tab 09/04/20 Furosemide [Lasix] 20 mg PO DAILY PRN PRN #0 09/04/20 Lisinopril [Zestril] 40 mg PO DAILY #0 09/04/20 The following prescriptions were given: Dexamethasone [Decadron] 6 mg PO DAILY #8 tab Transmission Status: Pending to [facility] Apixaban [Eliquis] 5 mg PO BID #60 tab.ds.pk Transmission Status: Pending to [facility] Primary Care Physician: Thuy Campbell MD [Primary Care Provider] - Please follow up with your Primary Care Physician in: in 1-2 week Test Results: Test results from this visit will be discussed in further detail at your follow-up appointment, if applicable. Please Follow Up With: Mark Leach MD When: as needed For COVID-19
--- NOTE | 2020-09-04 10:25 | DS.PCM_ITS ---
Discharge Date and Diagnosis - Problem List Patient Problems: Active and Suspected Problems Infectious encephalopathy (Acute) COVID-19 virus infection (Acute) Hypokalemia (Acute) Date of Admission: 09/02/20 Date of Discharge: 09/04/20 - Primary Discharge Diagnosis Acute Problems: Active Problems Infectious encephalopathy (Acute) COVID-19 virus infection (Acute) Hypokalemia (Acute) - Secondary Discharge Diagnosis Chronic Problems: Chronic Problems Anemia, unspecified (Chronic) CKD (chronic kidney disease) stage 3, GFR 30-59 ml/min (Chronic) Status post parathyroidectomy (Chronic) History of vitamin D deficiency (Chronic) History of rheumatic fever (Chronic) History of hyperlipidemia (Chronic) Morbid obesity with BMI of 40.0-44.9, adult (Chronic) Benign essential hypertension (Chronic) Hospital Course and Treatment Imaging Results: 09/04/20 07:10 CXR [Chest 1 View (Portable)] [RAD] Stat Operations: None Summary of Care Provided: This 80-year-old female with multiple comorbidities was brought to ER for decreased responsiveness/altered mental status. COVID-19 was positive. Patient also found to have acute kidney injury on CKD stage III. 1.Acute COVID 19 Infection with acute encephalopathy most probably infectious/metabolic: Patient is being admitted on MedSurg floor. On remdesivir and Decadron. Pulse ox 95% on 2 L of oxygen. ABG 7.4 5/34/60/25 on room air with Aa gradient. Lactic acid normal. Fibrinogen and D-dimer elevated. On Lovenox 120 mg, 1 mg/kg body weight daily adjusted to creatinine clearance. AST mildly elevated at 72, albumin 2.6 otherwise liver chemistry normal. Repeat labs shows improvement in BUN/creatinine 33/1.28, estimated creatinine clearance 35 ml/min. Acute DVT of left gastrocnemius vein: D-dimer was elevated 3.07, 2.98. CT angiogram chest could not be done because of acute kidney injury on CKD and not major difference in treatment. While hospital stay, patient was treated with Lovenox therapeutic dosage adjusted to creatinine clearance and discharged on Eliquis 10 mg twice daily for 5 more days and then 5 mg twice daily. Follow-up PCP in 1 to 2 weeks. 2. Hypokalemia and hypomagnesemia: Magnesium is 1.5 phosphorus 2.9. Potassium and magnesium replacement. 3. NICOLE on CKD Stage 3: Baseline serum creatinine is unclear. Repeat labs shows improvement in creatinine. Will monitor urine output, electrolytes and kidney function daily. Hold JOAQUIN inhibitor. There is improvement on the kidney function. Patient had good urine output. Mild anemia of chronic disease: Hemoglobin is stable. 11.4/35.9 Repeat H&H is stable 13.9/42.4. Hypertension: Continue atenolol and amlodipine. Lisinopril and Lasix on hold secondary to acute kidney injury as mentioned above Peripheral neuropathy: Continue gabapentin DVT prophylaxis: CODE STATUS full: Discharge medication reconciliation done. Discharge follow-up instructions completed. Discharge process discussed with the patient and all questions were answered to patient's satisfaction. Patient was advised to hold Lasix and lisinopril. Follow-up BMP in 1 week with PCP. Discharged on Mucinex, Decadron and Eliquis. Total time spent, exact 35 minutes on discharge meds reconciliation, exa mination, coordination of care with nurses and ancillary staff, review of imaging and blood test and discussion with the patient on follow-up instructions Patient Problems: Active and Suspected Problems Infectious encephalopathy (Acute) COVID-19 virus infection (Acute) Hypokalemia (Acute) Objective: Seen and examined. Patient heart rate and blood pressure are appropriate in acceptable limit. Patient pulse ox 93% on room air. On ambulation 93% on room air. No shortness of breath, cough, sputum production, nausea or vomiting. Physical exam General: Alert, Oriented x3, Cooperative, morbid obesity BMI 39.8 kg/m?. HEENT: Atraumatic, PERRLA, EOMI, Normocephalic Oral: No Gingival or Mucosal Lesions/ Ulcerations Neck: Supple, No JVD, Negative Carotid Bruits Lungs: Air entry diminished in bilateral lung bases. No crepitation/rhonchi. No hypoxia or tachypnea. Cardiovascular: Regular rate, Regular Rhythm, Normal S1, Normal S2, No murmurs Abdomen: Bowel Sounds Present, Soft, Non Tender, Non-Distended : No renal angle tenderness. No suprapubic tenderness. Extremities: No edema, Capillary Refill Less than 3 Seconds Skin: Intertrigo in bilateral groin and abdominal fold of his skin. No obvious ulcer. Musculoskeletal: No Tenderness to Palpation of Joints or Extremities Neurological: Cranial nerves II-XII grossly intact, Deep Tendon Reflexes 2+/4 and Symmetrical, Neuro grossly intact Psych/Mental Status: Normal Affect, Appropriate. - Physical Exam Vitals/I&O's: Vital Signs Temp Pulse Resp BP Pulse Ox 98.0 F 64 18 143/84 H 95 09/04/20 08:50 09/04/20 08:55 09/04/20 08:50 09/04/20 08:50 09/04/20 08:50 Oxygen Flow Rate (L/min) 2 Oxygen Delivery Method Room Air Weight: 254 lb 1.606 oz Body Mass Index (BMI) 39.8 Finger Stick Blood Glucose 111 Intake and Output for Last 24 Hours 09/02/20 09/03/20 09/04/20 23:59 23:59 23:59 Intake Total 250 / 450 2504.00 / 2704.00 1543.33 / 1543.33 Balance 250 / 450 2504.00 / 2704.00 1543.33 / 1543.33 Microbiology Past 72 Hours 09/02/20 17:30 Urine, Catheterized Urine Culture - Preliminary Presumptive E. coli 09/02/20 16:30 Mucosa - Nose SARS-CoV-2 Antigen (Rapid) - Final SARS-CoV-2 (COVID 19) Laboratory Results 09/04/20 : Sodium 139, Potassium 4.4, Chloride 110 H, Carbon Dioxide 18.0 L, Anion Gap 11, BUN 33 H, Creatinine 1.28 H, Estim Creat Clear Calc 35.22, Est GFR (MDRD) Af Amer 52 L, Est GFR (MDRD) Non-Af 43 L, BUN/Creatinine Ratio 25.8 H, Glucose 95, Calcium 7.6 L, Magnesium 1.9, Total Bilirubin 0.40, AST 72 H, ALT 41, Alkaline Phosphatase 86, Total Protein 7.0, Albumin 2.9 L, Globulin 4.1, Albumin/Globulin Ratio 0.7 L Current Medications Acetaminophen (Acetaminophen 325 Mg Tablet) 650 mg PO Q6H PRN PRN PRN Reason: Pain Score 1-10/Temp > 100.7 F Last Admin: 09/02/20 21:01 Dose: 650 mg Documented by: Albuterol Sulfate (Albuterol Sulfate 18 Gm Inhaler (200 Puffs)) 2 puff IH Q2H PRN PRN PRN Reason: Shortness of Breath/Wheezing Amlodipine Besylate (Amlodipine 5 Mg Tablet) 5 mg PO BID [facility] Last Admin: 09/04/20 08:55 Dose: 5 mg Documented by: Calamine/Phenol (Menthol/Lanolin/Calamine/Znox 113 Gm Tube) 1 applic TOPICAL BID [facility]; Protocol Last Admin: 09/04/20 08:56 Dose: 1 applic Documented by: Dexamethasone (Dexamethasone 4 Mg Tablet) 6 mg PO DAILY [facility] Stop: 09/12/20 10:01 Last Admin: 09/04/20 08:56 Dose: 6 mg Documented by: Docusate Sodium (Docusate Sodium 100 Mg Capsule) 100 mg PO BID PRN PRN PRN Reason: Constipation Enoxaparin Sodium (Enoxaparin 120 Mg/0.8 Ml Syringe) 120 mg SC DAILY [facility] Last Admin: 09/04/20 08:55 Dose: 120 mg Documented by: Gabapentin (Gabapentin 100 Mg Capsule) 100 mg PO TIDCM [facility] Last Admin: 09/04/20 08:54 Dose: 100 mg Documented by: Hydralazine HCl (Hydralazine 20 Mg/Ml Vial) 10 mg IV Q6H PRN PRN PRN Reason: sbp> 160 Lactated Ringer's () 1,000 mls @ 100 mls/hr IV .Q10H [facility] Last Infusion: 09/04/20 08:00 Dose: 0 mls/hr Documented by: Remdesivir 100 mg/ Sodium (Chloride) 250 mls @ 125 mls/hr IV DAILY@2200 [facility] Stop: 09/06/20 23:59 Last Infusion: 09/04/20 00:05 Dose: Infused Documented by: Metoprolol Succinate (Metoprolol(Xl)Succ 100 Mg Tablet) 100 mg PO DAILY [facility] Last Admin: 09/04/20 08:55 Dose: 100 mg Documented by: Nystatin (Nystatin Powder 15gm Bottle) 1 applic TOPICAL BID [facility]; Protocol Last Admin: 09/04/20 08:54 Dose: 1 applicatio Documented by: Ondansetron HCl (Ondansetron 4 Mg/2 Ml Vial) 4 mg IV Q8H PRN PRN PRN Reason: NAUSEA/VOMITING Potassium Chloride (Potassium Chloride 20 Meq Tablet) 40 meq PO DAILY [facility] Stop: 09/05/20 11:59 Last Admin: 09/04/20 08:55 Dose: 40 meq Documented by: Sodium Chloride (0.9% Saline Lock 10 Ml Syringe) 10 - 40 ml IV UD PRN PRN Reason: SALINE FLUSH Discharge Activity: May Not Drive Weight Bearing Status: Weight bearing as tolerated Call your doctor if you observe: Fever of 101 or Higher, Numbness or Tingling, Change in Color, Inability to urinate, Inability to have a bowel movement, Using more than one pad per hour, Shortness of breath, Dizziness, Fainting spells, Swelling in the ankles, Chest pain, Prolonged hiccoughing, Increased palpitations (irregular heartbeat), Calf discomfort, Uncontrolled pain Home Medications: Medications to take at Discharge Amlodipine [Norvasc] 5 mg PO BID 08/30/14 Cholecalciferol (Vitamin D3) [Vitamin D3] 5,000 unit PO MOTUWETHFRSA 09/02/20 Gabapentin [Neurontin] 600 mg PO BID 09/02/20 Vitamin B Complex 1 ea PO DAILY 09/02/20 Apixaban [Eliquis] 5 mg PO BID #60 tab.ds.pk 09/04/20 Atenolol 100 mg PO DAILY #0 09/04/20 Dexamethasone [Decadron] 6 mg PO DAILY #8 tab 09/04/20 Furosemide [Lasix] 20 mg PO DAILY PRN PRN #0 09/04/20 Guaifenesin [Mucinex] 1,200 mg PO BID #14 tab.er.12h 09/04/20 Lisinopril [Zestril] 40 mg PO DAILY #0 09/04/20 Following Prescriptions Were Given to Patient: Dexamethasone [Decadron] 6 mg PO DAILY #8 tab Transmission Status: Received by [facility] Apixaban [Eliquis] 5 mg PO BID #60 tab.ds.pk Transmission Status: Received by [facility] Guaifenesin [Mucinex] 1,200 mg PO BID #14 tab.er.12h Transmission Status: Received by [facility] Primary Care Physician: Thuy Campbell MD [Primary Care Provider] - Please follow up with your Primary Care Physician in: in 1-2 week Please Follow Up With: Mark Leach MD When: as needed For COVID-19 Medical Necessity - Tobacco Use Smoking Status: Never smoker Tobacco Use: Non-smoker Meaningful Use Info Meaningful Use Diagnoses (Choose all that apply): VTE - VTE Anticoag overlap given w/in hospital stay or rx'd at dc?: No Pt receive overlap for 5 days?: No Reason overlap not ordered, prescribed, or given for 5 days: Procedure Not Indicated Inpatient E&M: [id number] [facility]
--- NOTE | 2020-09-04 10:27 | CASEMGMT ---
ELLE CM Note: Plan is for discharge today. Patient let Dr. Pollock know she would like home care nursing and aide. Attempted to call her via hospital phone. Message left on her cell phone to update referral had been sent to [facility] for review. If they are able to accept, start of care would not be until Tuesday and physician is aware of this. DC PLAN: Home with [facility]- awaiting approval from [facility]. PH: [phone] FX: [phone] Otf COMER RN AC
--- NOTE | 2020-09-04 10:30 | CASEMGMT ---
ELLE CM Note: Plan is for discharge today. Patient let Dr. Pollock know she would like home care nursing and aide. Attempted to call her via hospital phone. Message left on her cell phone to update referral had been sent to [facility] for review. If they are able to accept, start of care would not be until Tuesday and physician is aware of this. DC PLAN: Home with [facility]- awaiting approval from [facility]. PH: [phone] FX: [phone] Otf COMER RN AC
[2020-09-04 10:35] LABS: Absolute Lymphocyte Count 0.93 X10^3/uL (0.83-4.51); Absolute Neutrophil Count 3.9 X10^3/uL (2.0-7.7); Basophil# 0.02 X10^3/uL; Basophil% 0.4 % (0-1); Hematocrit 42.4 % (37-47); Hemoglobin 13.9 g/dL (12.0-15.0); Lymphocyte # 0.93 X10^3/ul (4.0); Lymphocyte % 16.9 % (19-41); Mean Corp Hgb Conc 32.8 g/dL (32-36); Mean Corpuscular Hgb 30.6 pg (27.0-32.0); Mean Corpuscular Volume 93.4 fL (81-99); Mean Platelet Vol. 10.5 fl (6.2-12.0); Monocyte# 0.65 X10^3/uL; Monocyte% 11.8 % (0-10); NRBC Flagged by Analyzer 0 % (0-5); Neutrophil # 3.89 X10^3/uL (2.7-7.7); Neutrophil % 70.5 % (47-70); Platelet Count 181 K/mm3 (150-450); RBC Distribution Width CV 13.5 % (11.6-14.6); RBC Distribution Width SD 46.3 fl (35.1-43.9); Red Blood Count 4.54 M/mm3 (4.2-5.4); White Blood Count 5.5 K/mm3 (4.4-11.0)
--- NOTE | 2020-09-04 12:24 | CASEMGMT ---
RN CM Note: [facility] is not able to accept referral. Referral faxed to [facility]. Awaiting their review. tOf MACIASN RN ACM
--- NOTE | 2020-09-04 12:45 | PHA.DC.MC ---
Pharmacy Service has performed discharge medication reconciliation and counseling for this patient. The patient was counseled on the following discharge medications and changes in medications for homegoing were reviewed. 1. ELIQUIS 2. DECADRON 3. MUCINEX 4: HOLDING: LASIX, LISINOPRIL PER D/C INSTRUCTIONS. The Reason for Use, instructions for use, and potential side effects were reviewed for all new medications. The patient's questions regarding all of their medications were answered. The patient was able to verbally demonstrate an understanding of their discharge medications. Home Medications Amlodipine [Norvasc] 5 mg PO BID 08/30/14 Cholecalciferol (Vitamin D3) [Vitamin D3] 5,000 unit PO MOTUWETHFRSA 09/02/20 Gabapentin [Neurontin] 600 mg PO BID 09/02/20 Vitamin B Complex 1 ea PO DAILY 09/02/20 Apixaban [Eliquis] 5 mg PO BID #60 tab.ds.pk 09/04/20 Atenolol 100 mg PO DAILY #0 09/04/20 Dexamethasone [Decadron] 6 mg PO DAILY #8 tab 09/04/20 Furosemide [Lasix] 20 mg PO DAILY PRN PRN #0 09/04/20 Guaifenesin [Mucinex] 1,200 mg PO BID #14 tab.er.12h 09/04/20 Lisinopril [Zestril] 40 mg PO DAILY #0 09/04/20 The patient's discharge medication list was reviewed for discrepancies and discrepancies were resolved. NOTE: The patient inquired about the cost of medications. Medications sent to [facility] retail pharmacy. Notified pt that life insurance underwriter would contact [facility] retail and have them call her room phone to notify her of pricing of medications.
--- NOTE | 2020-09-04 15:49 | CASEMGMT ---
RN CM Note: call to [facility] to check on referral for home health. They are still processing the referral. Otf Montes RN ACM
--- NOTE | 2020-09-04 16:21 | CASEMGMT ---
RN CM Note: call to patient's home phone to update re: [facility] having accepted her referral. Message left with [facility] phone number. Start of care will be next day or two, but they will contact her this afternoon. Otf COMER RN ACM
--- NOTE | 2020-09-08 15:28 | CASEMGMT ---
ELLE TRACY DC Phone call DC Date: 09/04/20 DC Disposition: Home with [facility] DC Diagnosis: COVID 19 Call to [facility]. Verified start of care for [facility] was 09/06/20 and is current with home care. Otf COMER RN ACM
== END 2020-09-04 14:15 | disposition home health service (06) | DRG 177 ==
LOC: ED 17:45 → MS2 18:25
PROVIDERS: Family Medicine; Admitting Provider Internal Medicine; Emergency Provider Emergency Medicine; PCP Internal Medicine; Visit Provider Internal Medicine
DX: U07.1 COVID-19 (principal); G93.41 Metabolic encephalopathy; J12.89 Other viral pneumonia; N17.9 Acute kidney failure, unspecified; Z68.41 Body mass index [BMI] 40.0-44.9, adult; I82.462 Acute embolism and thrombosis of left calf muscular vein; R74.01 Elevation of levels of liver transaminase levels; I12.9 Hypertensive chronic kidney disease with stage 1 through stage 4 chronic kidney disease, or unspecified chronic kidney disease; N18.30 Chronic kidney disease, stage 3 unspecified; E78.5 Hyperlipidemia, unspecified; G62.9 Polyneuropathy, unspecified; D63.8 Anemia in other chronic diseases classified elsewhere; E87.6 Hypokalemia; E66.01 Morbid (severe) obesity due to excess calories; E83.42 Hypomagnesemia; Z82.49 Family history of ischemic heart disease and other diseases of the circulatory system; Z90.710 Acquired absence of both cervix and uterus
CPT/HCPCS: 36415; 36600; 70450; 71045; 80053; 81001; 82803; 83605; 83735; 84100; 85025; 85379; 85384; 85610; 85730; 87040; 87086; 87088; 87186; 87426; 93005; 93970; 97162; 97166; 99251; 99285; J7050; J7120; P9612; A4216; G0463

== ENCOUNTER 2021-07-24 10:00 | Emergency (ER) | payer MEDICARE, MEDICAID, SELFPAY ==
[2021-07-24 10:01] VITALS: BP 161/69; PULSE 88; RESP 16; TEMP 36.2; O2SAT 94; BMI 43.5
--- NOTE | 2021-07-24 10:17 | CT_ITS ---
STUDY: CT BRAIN WITHOUT CONTRAST REASON FOR EXAM: Female, 80 years old. Head injury due to a fall. Loss of consciousness. RADIATION DOSAGE (If Supplied By Facility): CTDIvol = ( 44.99 ) mGy, DLP = ( 762.36 ) mGycm TECHNIQUE: Transaxial CT imaging of the brain was performed without administration of intravenous contrast material. Individualized dose optimization techniques were used for this CT. COMPARISON: Comparison is made with prior examination of 09/02/2020. FINDINGS: Small scalloping lipoma overlying the right frontal bone. Normal calvarium. There is mild cerebral atrophy with widening of the extra-axial spaces and ventricular dilatation. There are areas of decreased attenuation within the white matter tracts of the supratentorial brain, consistent with microvascular disease changes. Normal basal ganglia and thalami. Normal brainstem. Normal cerebellum. There is evidence of a focal contusion in the superior aspect of the left parietal lobe in the region of the vertex. This measures 4.2 mm. There is also evidence of a petechial hemorrhage involving the superior aspect of the right frontal lobe as well as petechial hemorrhage in the posterior right parietal lobe as well. There are no findings of an acute ischemic infarction. Normal visualized paranasal sinuses. CT/Brain/Head without Contrast IMPRESSION: Chronic involutional changes of the brain. There is evidence of focal hemorrhagic contusion in the superior aspect of the left parietal lobe in the region of the cerebral vertex. This measures 4.2 mm. Also evidence of petechial hemorrhage involving superior aspect of the right frontal lobe as well as a petechial hemorrhage in the posterior right parietal lobe. N.B. : The above Results were Read Back by Willis Stevens MD to Estevan Sanders MD, and understanding confirmed on 07/24/2021 10:57:51 (ET). Electronically Signed: Willis Stevens MD at 10:59 EST , Service support ,
--- NOTE | 2021-07-24 10:21 | ED.VIS.FALL ---
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 Hit her head and her right hand she denies any other injury or major pains. Denies headache, vomiting, loss of consciousness, vision change, focal neurologic symptom. She has been having trouble with her legs ever since she had Covid last month, states there is nothing new or different there. She did not try to stand or walk yet since the fall. She states she is not on any blood thinning medications, however it appears that she is on apixaban according to her medication list. [facility] Medical History (Updated 07/24/21 @ 11:[address] Estevan Sanders MD) Anemia, unspecified CKD (chronic kidney disease) History of hyperlipidemia History of vitamin D deficiency HTN (hypertension) Morbid obesity with BMI of 40.0-44.9, adult Home Medications amlodipine 5 mg PO BID 08/30/14 [History Last Taken 09/02/20] Cholecalciferol (Vitamin D3) [Vitamin D3] 5,000 unit PO MOTUWETHFRSA 09/02/20 [History Last Taken 09/02/20] gabapentin 600 mg PO BID 09/02/20 [History Last Taken 09/02/20] vitamin B complex 1 ea PO DAILY 09/02/20 [History Last Taken 09/02/20] apixaban 5 mg PO BID #60 tab.ds.pk 09/04/20 [Rx Last Taken Unknown] atenolol 100 mg PO DAILY #0 09/04/20 [Rx Last Taken 09/02/20] dexamethasone 6 mg PO DAILY #8 tab 09/04/20 [Rx Last Taken Unknown] furosemide 20 mg PO DAILY PRN PRN #0 09/04/20 [Rx Last Taken Unknown] guaifenesin 1,200 mg PO BID #14 tab.er.12h 09/04/20 [Rx Last Taken Unknown] lisinopril 40 mg PO DAILY #0 09/04/20 [Rx Last Taken 09/02/20] Allergy/AdvReac Type Severity Reaction Status Date / Time Penicillins Allergy Hives Verified 07/24/21 10:00 Surgical History Status post parathyroidectomy Social History Smoking Status: Never smoker ROS ROS ED Constitutional Constitutional ED: Denies chills or fever(s) Eyes Eyes: Denies change in vision or diplopia ENT ENT ED: Denies rhinorrhea or sore throat Cardiovascular Cardiovascular: Denies chest pain or palpitations Respiratory/Chest Respiratory/Chest: Denies cough or dyspnea Gastrointestinal Gastrointestinal: Denies abdominal pain, diarrhea, nausea or vomiting Genitourinary Genitourinary ED: Denies dysuria or hematuria Musculoskeletal Musculoskeletal: Reports extremity pain; Denies back pain or neck pain Integumentary Reports Abrasions and laceration; Denies abscess or rash Neurologic Neurologic: Denies headache(s), paresthesias or weakness Psychiatric Psychiatric: Denies anxiety or suicidal thoughts EXAM Physical Exam Const Vital Signs: 07/24/21 10:01 Temperature 97.1 F L Temperature Source Temporal Pulse Rate 88 Respiratory Rate 16 Blood Pressure 161/69 H Blood Pressure Mean 99 Pulse Ox 94 Oxygen Delivery Method Room Air Positive well nourished and well developed General Appearance ED: well developed and NAD Nutritional Appearance: morbidly obese HEENT Reports TM's clear and moist mucous membranes HEENT Narrative: L-shaped laceration with tenderness right frontoparietal scalp without crepitance or depression or active bleeding normocephalic; Negative for Hernandez's sign, palpable skull fracture or raccoon eyes Tympanic Membrane ED: Yes TM's clear Eyes PERRL and EOMs intact bilaterally Neck full ROM and supple Resp normal respiratory effort and clear to auscultation bilaterally Cardio regular rate, regular rhythm and no murmurs GI non-tender and non-distended Auscultation: normoactive bowel sounds Palpation: soft Back/Spine no CVA tenderness General Back: other FROM Extremity Extremity Narrative: Superficial 0.5 cm laceration to the right thenar eminence soft tissue without any bony tenderness or limitation of range of motion of hand, fingers, wrist. Able to oppose thumb to small finger without difficulty or significant pain. General Extremety ED: Negative for edema, pulses abnormal or tenderness General Extremity: Negative for edema or pulses abnormal Neuro oriented x3, CN's II-XII intact bilaterally and no sensory deficits noted Sensorium / Orientation: awake and alert Motor Exam: strength 5/5 throughout Skin no rashes or lesions noted Skin Narrative: Partial-thickness 0.5 cm clean linear laceration right thenar eminence. 3 cm full-thickness clean appearing L-shaped linear laceration right frontoparietal scalp down to galea, which is intact. MDM MDM MDM Narrative Medical decision making narrative: CT shows petechial hemorrhage and cerebral contusion as noted below. Patient is still keenly alert with a GCS 15. She is NOT on apixaban, she states that is from over a year ago when she had a DVT and her doctor took her off of it. She takes no other anticoagulants right now. Laceration was repaired. The right hand was cleansed and dressed with bacitracin I do not think it needs to be repaired and I do not think she needs x-rays there, she has no bony tenderness and excellent range of motion of everything including opposition. Prefers [facility], so discussed with [facility] for transfer due to need for trauma care. Radiography Diagnostic Testing: Clinical Impression(s) from Imaging Studies Brain CT 07/24/21 10:17 IMPRESSION: Chronic involutional changes of the brain. There is evidence of focal hemorrhagic contusion in the superior aspect of the left parietal lobe in the region of the cerebral vertex. This measures 4.2 mm. Also evidence of petechial hemorrhage involving superior aspect of the right frontal lobe as well as a petechial hemorrhage in the posterior right parietal lobe. N.B. : The above Results were Read Back by Willis Stevens MD to Estevan Sanders MD, and understanding confirmed on 07/24/2021 10:57:51 (ET). Electronically Signed: Willis Stevens MD at 10:59 EST , Service support , ADDENDUM: 07/24/21 1106 IMPRESSION: Chronic involutional changes of the brain. There is evidence of focal hemorrhagic contusion in the superior aspect of the left parietal lobe in the region of the cerebral vertex. This measures 4.2 mm. Also evidence of petechial hemorrhage involving superior aspect of the right frontal lobe as well as a petechial hemorrhage in the posterior right parietal lobe. N.B. : The above Results were Read Back by Willis Stevens MD to Estevan Sanders MD, and understanding confirmed on 07/24/2021 10:57:51 (ET). 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, Discussing w/Consultants, Arranging Admission or Transfer, Performing Direct Patient Care at Bedside and - (Exclusive of procedures) Discharge Plan Triage Chief Complaint: Fall ED Provider: Estevan Sanders Dx/Rx/DC Orders Clinical Impression: Intracerebral bleed due to trauma, Laceration of scalp, Laceration of hand, right, Fall from slipping Prescriptions: No Action amlodipine 5 MG tablet 5 mg PO BID RF: 0 gabapentin 300 MG capsule 600 mg PO BID RF: 0 vitamin B complex 1 EACH capsule 1 ea PO DAILY RF: 0 Cholecalciferol (Vitamin D3) [Vitamin D3] 5,000 UNIT capsule 5,000 unit PO MOTUWETHFRSA RF: 0 dexamethasone 4 MG tablet 6 mg PO DAILY Qty: 8 RF: 0 apixaban 5 MG tablets,dose pack 5 mg PO BID Qty: 60 RF: 0 atenolol 100 MG tablet 100 mg PO DAILY Qty: 0 RF: 0 furosemide 20 MG tablet 20 mg PO DAILY PRN PRN (Reason: Swelling) Qty: 0 RF: 0 lisinopril 40 MG tablet 40 mg PO DAILY Qty: 0 RF: 0 guaifenesin 1,200 MG tablet extended release 12hr 1,200 mg PO BID Qty: 14 RF: 0 Primary Care Provider: Thuy Campbell Referrals: Thuy Campbell MD [Primary Care Provider] - Disposition Disposition: Acute Care Hospital Discharge Location: [facility]
[2021-07-24] MEDS: Lidocaine 1% /Epi 1:100 (20ml) 20 ML Vial INFILT (10:31)
[2021-07-24 11:59] VITALS: BP 140/88; PULSE 67; RESP 15; O2SAT 96; O2SAT 98
== END 2021-07-24 12:01 | disposition short-term general hospital (02) ==
PROVIDERS: Emergency Provider Emergency Medicine; PCP Internal Medicine
DX: S01.01XA Laceration without foreign body of scalp, initial encounter (principal); S61.411A Laceration without foreign body of right hand, initial encounter; W01.0XXA Fall on same level from slipping, tripping and stumbling without subsequent striking against object, initial encounter; D64.9 Anemia, unspecified; E66.01 Morbid (severe) obesity due to excess calories; E78.5 Hyperlipidemia, unspecified; I12.9 Hypertensive chronic kidney disease with stage 1 through stage 4 chronic kidney disease, or unspecified chronic kidney disease; Z68.41 Body mass index [BMI] 40.0-44.9, adult; Z79.01 Long term (current) use of anticoagulants; Z79.52 Long term (current) use of systemic steroids; R23.3 Spontaneous ecchymoses
CPT/HCPCS: 12002; 70450; 99285; J7030; A4216

== ENCOUNTER → 2022-05-25 | Outpatient (CLI) | payer MEDICARE, MEDICAID, SELFPAY ==
--- NOTE | 2022-05-25 10:54 | US_ITS ---
INDICATION: LESION OF PAROTID GLANDS EXAMINATION: Ultrasound US Head/Neck Soft Tissue TECHNIQUE: Polanco scale and color doppler imaging was performed of the right parotid gland was performed, limited evaluation of the left parotid gland was performed for comparison.. COMPARISON: None. FINDINGS: There is an irregular hypoechoic mass visualized in the right parotid space this demonstrates heterogeneous echogenicity with focal scattered hyperechoic areas that do not demonstrate any posterior acoustic shadowing, subtle scattered areas of increased vascularity visualized within this mass, mass measures 3.4 x 2.7 x 2.4 cm. A smaller ill-defined hyperechoic lesion is visualized adjacent to is visualized within the parotid space however this lesion demonstrates increased central echogenicity suggestive of a fatty hilum this suggestive of a small lymph node measuring 0.5 x 0.6 x 0.4 cm. The right parotid gland measures 2.8 x 2.7 x 3.9 cm. The left parotid gland demonstrates unremarkable echogenicity unremarkable vascularity with no evidence of masses. The left parotid gland measures 4.5 x 1.6 x 1.9 cm. US/Head/Neck Soft Tissue IMPRESSION: Irregular right parotid mass measuring 3.4 cm would recommend tissue sampling for optimal evaluation. Electronically Signed: Kirk Stone MD at 14:31 EDT ,
== END | disposition home or self-care (01) ==
LOC: US 10:52
PROVIDERS: PCP Internal Medicine; Referring Provider Internal Medicine; Visit Provider Internal Medicine
DX: K11.9 Disease of salivary gland, unspecified (principal)
CPT/HCPCS: 76536